=== PATIENT | male | born 1975 | race Caucasian/White ===

== ENCOUNTER 2024-11-01 10:27 | Inpatient (IN) | payer BC, OTHER ==
[~2024-11-01] VITALS: Ht 182.9 cm; Wt 131.7 kg
[2024-11-01] VITALS (7 sets, daily range): BP systolic 123; BP diastolic 67; PULSE 80–86; RESP 15–24; TEMP 98.2; O2SAT 94–98
--- NOTE | 2024-11-01 10:58 | ED.PDOC ---
Musculoskeletal HPI Comments 49 y/o obese M presents with c/o unhealing burn wound to left foot, today. Patient endorses on sustaining a burn wound to the outer-side of his left-foot, near his large toe a month ago and reports on wound not healing well since. He states further on additional onset of pain that radiates up his left leg to his knee area in addition to having worsening swelling and redness to around his left foot area along with chills and chills for the past 3x days. Patient comments on Tylenol/Motrin use to manage pain to no relief or improvement. He admits to traveling to [place] after sustaining wound and his tetanus shot being UTD. Patient denies any numbness, tingling, weakness, wound discharge, fever, or other associated symptoms or modifiers at this time. Chief Complaint: Lower Extremity Time Seen by MD: 10:40 Reviewed Notes: Nurses Notes, Medications, Allergies Allergies: Coded Allergies: NO KNOWN ALLERGIES (Unverified , 11/01/24) Information Source: Patient Mode of Arrival: Ambulatory Location: Left Extremity Location: Foot Timing: Months Prehospital treatment: Pain Meds Severity: Moderate Able to Move Extremity: Yes Bear Weight: Limited Pain: Moderate Past Medical History PAST MEDICAL HISTORY: Denies Past Medical History (Other): obese Surgical History (Other): back and foot surgery Family History Family History: Unknown Social History Smoker: Cigarettes Alcohol: Denies ETOH Use Drugs: Denies Drug Use Lives In: Home Integumetry: reports: wounds All Other Systems: Reviewed and Negative (Comprehensive systems review obtained and negative except for what is stated in the HPI.) Physical Exam General Appearance: No Apparent Distress, Normal HEENT: Normal ENT Inspection, Pharynx Normal, TMs Normal Neck: Full Range of Motion, Non-Tender, Normal, Normal Inspection Respiratory: Chest Non-Tender, Lungs Clear, No Accessory Muscle Use, No Respiratory Distress, Normal Breath Sounds Cardiovascular: No Edema, No JVD, No Murmur, No Gallop, Normal Peripheral Pulses, Regular Rate/Rhythm Breast Exam: Deferred Gastrointestinal: No Organomegaly, Non Tender, No Pulsatile Mass, Normal Bowel Sounds, Soft Genitalia: Deferred Pelvic: Deferred Rectal: Deferred Extremities: No calf tenderness, Normal capillary refill, Normal inspection, Normal range of motion, Other (Left lower extremity with mild to moderate swelling throughout extending from foot to the distal knee, positive warm to touch, old appearing wound to the left foot with surrounding erythema and tenderness to palpation, no active drainage, no crepitus, no skip lesions, no bullae, no necrotic skin, no pain beyond the area of erythema, still able to ambulate using that leg, full range of motion of all toes, ankle, knee, and hip, sensation intact to light touch throughout, 2+ DP pulses bilaterally, compartments soft) Musculoskeletal : Apperance: Normal Neurologic: Alert, force variation equipment tender II-XII nml as Tested, No Motor Deficits, Normal Affect, Normal Mood, No Sensory Deficits Cerebellar Function: NOT DONE Reflexes: NOT DONE Skin: Dry, Normal Color, Warm Lymphatic: No Adenopathy Was a procedure done? Was a procedure done?: No Differential Diagnosis EXT Differential Diagnosis: Cellulitis, Deep Vein Thrombosis, Septic, Other (unhealing wound, dermatitis) X-Ray, Labs, Meds, VS Vital Signs Date Time Temp Pulse Resp B/P (MAP) Pulse Ox O2 Delivery O2 Flow Rate FiO2 11/01/24 11:51 98 16 144/84 (104) 94 11/01/24 10:32 98.3 110 18 151/97 (115) 99 98.3 Lab Test 11/01/24 12:39 11/01/24 10:48 Range/Units Lactic Acid Level 1.8 3.1 *H 0.4-2.0 mmol/L White Blood Count 11.2 H 4.4-10.8 10^3/uL Red Blood Count 4.73 4.5-5.90 10^6/uL Hemoglobin 15.0 13.5-17.5 g/dL Hematocrit 41.6 41.0-53.0 % Mean Corpuscular Volume 88.1 80.0-100.0 fL Mean Corpuscular Hemoglobin 31.7 28.0-32.0 pg Mean Corpuscular Hemoglobin Concent 36.0 32.0-36.0 g/dL Red Cell Distribution Width 12.6 11.8-14.3 % Platelet Count 296 140-450 10^3/uL Mean Platelet Volume 7.9 6.9-10.8 fL Neutrophils (%) (Auto) 76.7 37.0-80.0 % Lymphocytes (%) (Auto) 12.8 10.0-50.0 % Monocytes (%) (Auto) 8.2 0.0-12.0 % Eosinophils (%) (Auto) 1.5 0.0-7.0 % Basophils (%) (Auto) 0.8 0.0-2.0 % Neutrophils # (Auto) 8.6 1.6-8.6 10 ^3/uL Lymphocytes # (Auto) 1.4 0.4-5.4 10 ^3/uL Monocytes # (Auto) 0.9 0-1.3 10 ^3/uL Eosinophils # (Auto) 0.2 0-0.8 10 ^3/uL Basophils # (Auto) 0.1 0-0.2 10 ^3/uL Nucleated Red Blood Cells 0.1 % Sodium Level 128 L 136-145 mmol/L Potassium Level 4.1 3.5-5.1 mmol/L Chloride Level 96 L 98-107 mmol/L Carbon Dioxide Level 21 20-31 mmol/L Anion Gap 11 5-15 Blood Urea Nitrogen 12 9-23 mg/dL Creatinine 0.94 0.700-1.30 mg/dL Glomerular Filtration Rate Calc 99 >90 mL/min BUN/Creatinine Ratio 12.8 10.0-20.0 Serum Glucose 385 H 74-106 mg/dL Calcium Level 10.0 8.7-10.4 mg/dL Current Medications Medications (Trade) Dose Ordered Sig/Charli Route Start Time Stop Time Status Last Admin Sodium Chloride 1,000 ml @ 1,000 mls/hr Q1H ONCE IV 11/01/24 10:45 11/01/24 11:44 DC 11/01/24 12:14 Ketorolac Tromethamine (Toradol Injection) 15 mg ONCE ONCE IV 11/01/24 10:45 11/01/24 10:46 DC 11/01/24 13:16 Ceftriaxone Sodium 50 ml @ 100 mls/hr ONCE ONCE IV 11/01/24 10:45 11/01/24 11:14 DC 11/01/24 13:[address] [address] Ph: [phone] DIAGNOSTIC IMAGING Diagnostic Imaging Report : [id number] Signed PATIENT: NIKITA ESQUIVEL ACCT: [id number] UNIT: [id number] : 1975 LOC: ER ROOM / BED: / AGE / SEX: 49 / M ADM STATUS: REG ER SERVICE 1044 ORDERING PHYSICIAN: SHARATH KEVIN MD PROCEDURE(s): LLDVT - LT Lower DVT REASON: R/O DVT ORDER NUMBER(s): [id number], ACCESSION NUMBER(s): [id number] EXAM: US LT LOWER DVT HISTORY: R/O DVT COMPARISON: None TECHNIQUE: Duplex Doppler evaluation of the deep venous system of the left lower extremity from the common femoral vein to the popliteal vein including color Doppler and spectral/pulsed waveform analysis was performed. FINDINGS: The common femoral vein demonstrates appropriate compressibility and waveform variability. There is compressibility/patency of the great saphenous vein at the proximal thigh. The femoral vein demonstrates appropriate compressibility and waveform variability. The deep femoral vein demonstrates appropriate compressibility and waveform variability. The popliteal vein demonstrates appropriate compressibility and waveform variability. There is normal compressibility at the tibioperoneal trunk. IMPRESSION: 1. No left femoropopliteal venous thrombosis. If clinical concern/symptoms persist or worsen, short-interval follow-up study is suggested. ATED BY: CESAR DUFF MD DICTATED DATE/TIME: 11/01/24 1126 SIGNED BY: CESAR DUFF MD SIGNED DATE/TIME: 11/01/24 112 CC: X-Ray, Labs, Meds, VS Comment 49-year-old male with no known past medical history here today with a concern for wound to his left lower extremity. Labs notable for elevated glucose to the 300s consistent with diabetes without evidence of DKA/HHS and also with elevated lactic acid. Physical exam and workup overall consistent with cellulitis/sepsis. Patient was started on antibiotics after cultures were drawn and was given 1 L of normal saline (30 cc/kilogram not performed due to concern for iatrogenic volume overload). Doubt necrotizing soft tissue infection or deep space abscess. Patient was admitted for further management and care of the cellulitis in the setting of uncontrolled diabetes. Patient in agreement with the plan. Time of 1ST Reevaluation: 11:10 Reevaluation 1ST: Improved Patient Education/Counseling: Diagnosis, Treatment Family Education/Counseling: No Family Present Additional Information Previous medical encounters reviewed: N/A The following tests were ordered, and results were reviewed by me: lactic acid w /reflex, BMP, CBC Additional Information was gathered from interviewing the following independent historians: N/A I reviewed and agreed with the following test results read by other providers: N/A I discussed treatment and results with medical personnel and: Patient Sepsis Sepsis Reasesment Focused Exam Sepsis focused exam: focus exam completed, time: (1054) Departure 1 Departure Time of Disposition: 13:51 Impression: Primary Impression: Cellulitis Additional Impressions: Uncontrolled diabetes mellitus Sepsis Disposition: 02 SHORT TERM HOSPITAL Admit to: Med Surg Condition: Stable Critical Care Note Critical Care Time?: Yes (30 min-critical care time only) Stability Stability form required: No Heart Score Heart Score: Heart Score Response (Comments) Value History N/A 0 EKG N/A 0 Age N/A 0 Risk Factors N/A 0 Troponin N/A 0 Total 0 GRACIA BURNHAM Nov 01, 2024 10:57 SHARATH KEVIN MD Nov 01, 2024 13:52
[2024-11-01 11:20] LABS: Basophils # (auto) 0.1 10 ^3/uL (0-0.2); Basophils % (auto) 0.8 % (0.0-2.0); Eosinophils # (auto) 0.2 10 ^3/uL (0-0.8); Eosinophils % (auto) 1.5 % (0.0-7.0); Hematocrit 41.6 % (41.0-53.0); Lymphocytes # (auto) 1.4 10 ^3/uL (0.4-5.4); Lymphocytes % (auto) 12.8 % (10.0-50.0); Mean Corpuscular Hemoglobin 31.7 pg (28.0-32.0); Mean Corpuscular Volume 88.1 fL (80.0-100.0); Monocytes # (auto) 0.9 10 ^3/uL (0-1.3); Monocytes % (auto) 8.2 % (0.0-12.0); Neutrophils # (auto) 8.6 10 ^3/uL (1.6-8.6); Neutrophils % (auto) 76.7 % (37.0-80.0); Nucleated Red Blood Cells % 0.1 %; Platelet Count (auto) 296 10^3/uL (140-450); Red Blood Cells 4.73 10^6/uL (4.5-5.90); Red Cell Distribution Width 12.6 % (11.8-14.3); White Blood Cell 11.2 10^3/uL (4.4-10.8)
[2024-11-01 11:26] LABS: Potassium 4.1 mmol/L (3.5-5.1)
[2024-11-01 11:27] LABS: Anion Gap 11 (5-15); Carbon Dioxide 21 mmol/L (20-31)
--- NOTE | 2024-11-01 11:28 | DVH ---
EXAM: US LT LOWER DVT HISTORY: R/O DVT COMPARISON: None TECHNIQUE: Duplex Doppler evaluation of the deep venous system of the left lower extremity from the c ommon femoral vein to the popliteal vein including color Doppler and spectral/pulsed waveform analysi s was performed. FINDINGS: The common femoral vein demonstrates appropriate compressibility and waveform variability. There is compressibility/patency of the great saphenous vein at the proximal thigh. The femoral vein demonstrates appropriate compressibility and waveform variability. The deep femoral vein demonstrates appropriate compressibility and waveform variability. The popliteal vein demonstrates appropriate compressibility and waveform variability. There is normal compressibility at the tibioperoneal trunk. IMPRESSION: 1. No left femoropopliteal venous thrombosis. If clinical concern/symptoms persist or worsen, short-interval follow-up study is suggested.
[2024-11-01 11:32] LABS: BUN/Creatinine Ratio 12.8 (10.0-20.0); Blood Urea Nitrogen 12 mg/dL (9-23)
[2024-11-01 11:38] LABS: Chloride 96 mmol/L (98-107); Glucose 385 mg/dL (74-106); Lactic Acid w/Reflex 3.1 mmol/L (0.4-2.0); Sodium 128 mmol/L (136-145)
[2024-11-01] MEDS: SODIUM CHLORIDE 0.9% 1,000 ML IV ONE ×2 (12:14→18:33)
[2024-11-01] MEDS: cefTRIAXone 1GM/50ML D5W 50 ML IV ONE (13:16)
[2024-11-01] MEDS: KETOROLAC TROMETH 30 MG/ML 1ML VIAL IV ONE (13:16)
--- NOTE | 2024-11-01 14:43 | DVHHP2 ---
Admitting Diagnosis: Left foot pain History of Present Illness 49 y/o obese M presents with c/o unhealing burn wound to left foot, today. Patient endorses on sustaining a burn wound to the outer-side of his left-foot, near his large toe a month ago and reports on wound not healing well since. He states further on additional onset of pain that radiates up his left leg to his knee area in addition to having worsening swelling and redness to around his left foot area along with chills and chills for the past 3x days. Patient comments on Tylenol/Motrin use to manage pain to no relief or improvement. He admits to traveling to [place] after sustaining wound and his tetanus shot being UTD. Patient denies any numbness, tingling, weakness, wound discharge, fever, or other associated symptoms or modifiers at this time. PAST MEDICAL HISTORY: Denies Past Medical History (Other): obese Surgical History (Other): back and foot surgery Family History: Unknown Social History Smoker: Cigarettes Alcohol: Denies ETOH Use Drugs: Denies Drug Use Lives In: Home Allergies: Coded Allergies: NO KNOWN ALLERGIES (Unverified , 11/01/24) Current Medications Current Medications Medications (Trade) Dose Ordered Sig/Charli Route PRN Reason Start Time Stop Time Status Last Admin Vancomycin HCl 0 ml @ 0 mls/hr UD IV 11/01/24 16:00 UNV Piperacillin Sod/ Tazobactam Sod 100 ml @ 100 mls/hr Q6H IV 11/01/24 16:00 UNV Diagnostic Test (Pha) (Accu-Chek Comfort Curve T) 1 strip ACHS 11/01/24 17:00 UNV Insulin Human Regular (InsuLIN R) ACHS SC 11/01/24 17:00 UNV Dextrose 50 ml UD PRN IV Blood Sugar LESS THAN 60 11/01/24 16:00 UNV Docusate Sodium (Colace Capsule) 100 mg BIDPRN PRN PO FOR CONSTIPATION 11/01/24 16:00 UNV Acetaminophen (Tylenol Tablet) 650 mg Q6HP PRN PO PAIN SCALE 1-3 OR TEMP>100.4 11/01/24 16:00 UNV Hydromorphone HCl (Dilaudid Injection) 0.5 mg Q4HP PRN IV SEVERE PAIN (7-10 PAIN SCALE) 11/01/24 16:00 UNV Ondansetron HCl (Zofran) 4 mg Q4HP PRN IV NAUSEA / VOMITING 11/01/24 16:00 UNV Vital Signs Vital Signs Date Time Temp Pulse Resp B/P (MAP) Pulse Ox O2 Delivery O2 Flow Rate FiO2 11/01/24 13:47 84 16 134/75 (94) 95 11/01/24 10:32 98.3 98.3 Physical Exam -49 years old male, overweight, sitting on chair. Mild distress HEENT-atraumatic normocephalic Heart-regular rate and rhythm Lungs clear to auscultate bilaterally Abdomen soft nontender nondistended Musculoskeletal-left lower extremity laterally erythema, tender with the wheezing as left lateral ulcer Neuro-AO x3, they seem bilateral lower foot, strength intact Results Labs Test 11/01/24 12:39 11/01/24 10:48 Range/Units Lactic Acid Level 1.8 0.4-2.0 mmol/L White Blood Count 11.2 H 4.4-10.8 10^3/uL Red Blood Count 4.73 4.5-5.90 10^6/uL Hemoglobin 15.0 13.5-17.5 g/dL Hematocrit 41.6 41.0-53.0 % Mean Corpuscular Volume 88.1 80.0-100.0 fL Mean Corpuscular Hemoglobin 31.7 28.0-32.0 pg Mean Corpuscular Hemoglobin Concent 36.0 32.0-36.0 g/dL Red Cell Distribution Width 12.6 11.8-14.3 % Platelet Count 296 140-450 10^3/uL Mean Platelet Volume 7.9 6.9-10.8 fL Neutrophils (%) (Auto) 76.7 37.0-80.0 % Lymphocytes (%) (Auto) 12.8 10.0-50.0 % Monocytes (%) (Auto) 8.2 0.0-12.0 % Eosinophils (%) (Auto) 1.5 0.0-7.0 % Basophils (%) (Auto) 0.8 0.0-2.0 % Neutrophils # (Auto) 8.6 1.6-8.6 10 ^3/uL Lymphocytes # (Auto) 1.4 0.4-5.4 10 ^3/uL Monocytes # (Auto) 0.9 0-1.3 10 ^3/uL Eosinophils # (Auto) 0.2 0-0.8 10 ^3/uL Basophils # (Auto) 0.1 0-0.2 10 ^3/uL Nucleated Red Blood Cells 0.1 % Sodium Level 128 L 136-145 mmol/L Potassium Level 4.1 3.5-5.1 mmol/L Chloride Level 96 L 98-107 mmol/L Carbon Dioxide Level 21 20-31 mmol/L Anion Gap 11 5-15 Blood Urea Nitrogen 12 9-23 mg/dL Creatinine 0.94 0.700-1.30 mg/dL Glomerular Filtration Rate Calc 99 >90 mL/min BUN/Creatinine Ratio 12.8 10.0-20.0 Serum Glucose 385 H 74-106 mg/dL Calcium Level 10.0 8.7-10.4 mg/dL Primary Diagnosis Left foot nonhealing ulcer possible cellulitis Sepsis Lactic acidosis Plan Zosyn for broad-spectrum antibiotics Check blood culture CT of the left foot to assess for possible abscess Check A1c level Pain control Podiatry Consult consult for left foot Check CRP Pain control Antiemetics Full code Lovenox for DVT prophylaxis No GI prophylaxis needed Diabetic diet Plan discussed with: Patient Problems List: (1) Cellulitis Status: Acute (2) Uncontrolled diabetes mellitus Status: Acute (3) Sepsis Status: Acute Date of Service: Nov 01, 2024 Billing Provider: KIRK BAE MD Common Visit Codes: [id number] INP/OBS CARE (HIGH) KIRK BAE MD Nov 01, 2024 14:43
[2024-11-01] MEDS ORDERED: ONDANSETRON HCL 4 MG/2 ML VIAL IV PRN (16:00)
[2024-11-01] MEDS ORDERED: DEXTROSE (50%) 50ML SYRG IV PRN (16:00)
[2024-11-01] MEDS ORDERED: VANCOMYCIN PER PHARMACY 0 MG IV SCH (16:00)
[2024-11-01] MEDS ORDERED: PIPERACILLIN-TAZOB 3.375GM 100 ML IV ONE (16:30)
[2024-11-01 16:47] LABS: Erythrocyte Sedimentation Rate 72 mm/hr (0-20)
--- NOTE | 2024-11-01 16:55 | DVH ---
EXAM: CT LEFT LOWER EXTREMITY W/O CON INDICATION: left foot cellulitis EXAM DATE: 11/01/2024 04:11 PM COMPARISON: None TECHNIQUE: Multiple axial CT images of the left foot and ankle were obtained using bone algorithm. Ax ial and coronal reformatting was done. Bone and soft tissue windows were reviewed. Radiation Dose Information: CT Dose: CTDI volume is 7.75 mGy. Dose-length product is 240.36 mGy*cm Findings/Impression: Limited evaluation given noncontrast technique. There is no evidence of an acute fracture, dislocation, osseous erosions, blastic, or lytic lesions. No radiopaque foreign bodies. Mild diffuse soft tissue edema. No focal fluid collections or subcutaneous emphysema.
[2024-11-01] MEDS: ACCU-CHEK COMFORT CURVE STRIP VI SCH (17:00)
[2024-11-01] MEDS: HYDROmorphone HCL 2 MG/ML VL/or syr IV PRN (17:38)
[2024-11-01] MEDS: PIPERACILLIN-TAZOB 3.375GM 100 ML IV ONE (17:55)
[2024-11-01] MEDS: InsuLIN REG 1unit/0.01ml Soln (100units/ml) SC SCH (17:56)
[2024-11-01] MEDS: VANCOMYCIN 1GM/200ML PM 250 ML IV SCH (18:34)
[2024-11-02] VITALS (10 sets, daily range): BP systolic 112–153; BP diastolic 56–92; PULSE 84–91; RESP 18–20; TEMP 97.6–99; O2SAT 91–98
[2024-11-02] MEDS: PIPERACILLIN-TAZOB 3.375GM 100 ML IV SCH ×2 (02:28→14:00)
[2024-11-02] MEDS: VANCOMYCIN 1.75GM/350ML IV SCH (06:08)
[2024-11-02 06:22] LABS: Alanine Aminotransferase 28 U/L (7-40); Alkaline Phosphatase 82 U/L (46-116); Anion Gap 9 (5-15); Aspartate Aminotransferase 17 U/L (13-40); BUN/Creatinine Ratio 15.7 (10.0-20.0); Basophils # (auto) 0.1 10 ^3/uL (0-0.2); Blood Urea Nitrogen 14 mg/dL (9-23); Calcium 9.5 mg/dL (8.7-10.4); Carbon Dioxide 23 mmol/L (20-31); Chloride 101 mmol/L (98-107); Eosinophils # (auto) 0.3 10 ^3/uL (0-0.8); Eosinophils % (auto) 3.3 % (0.0-7.0); Hematocrit 38.6 % (41.0-53.0); Hemoglobin 13.7 g/dL (13.5-17.5); Lymphocytes # (auto) 1.6 10 ^3/uL (0.4-5.4); Lymphocytes % (auto) 17.1 % (10.0-50.0); Mean Corpuscular Hemoglobin 31.3 pg (28.0-32.0); Mean Corpuscular Hgb Conc. 35.4 g/dL (32.0-36.0); Mean Corpuscular Volume 88.3 fL (80.0-100.0); Monocytes # (auto) 0.8 10 ^3/uL (0-1.3); Neutrophils # (auto) 6.4 10 ^3/uL (1.6-8.6); Neutrophils % (auto) 69.6 % (37.0-80.0); Platelet Count (auto) 250 10^3/uL (140-450); Potassium 4.2 mmol/L (3.5-5.1); Red Blood Cells 4.37 10^6/uL (4.5-5.90); Red Cell Distribution Width 12.5 % (11.8-14.3); Total Protein 6.9 g/dL (5.7-8.2); White Blood Cell 9.2 10^3/uL (4.4-10.8)
[2024-11-02 06:48] LABS: Glucose 235 mg/dL (74-106); Sodium 133 mmol/L (136-145)
[2024-11-02] MEDS ORDERED: PIPERACILLIN-TAZOB 3.375GM 100 ML IV SCH (09:45)
--- NOTE | 2024-11-02 11:27 | DVHPN2 ---
Reviewed: Care Plan, H&P, Labs, Medications, Previous Orders, Radiology Changes from previous H/P or p: No Changes Objective Vitals Vital Signs Date Time Temp Pulse Resp B/P (MAP) Pulse Ox O2 Delivery O2 Flow Rate FiO2 11/02/24 09:00 98.2 87 18 128/72 (90) 95 98.2 11/01/24 22:59 Room Air 11/01/24 22:59 0 21 Intake/Output Intake and Output 11/02/24 07:00 Intake Total 2675 ml Balance 2675 ml Intake Oral 800 ml IV Total 1875 ml # Voids 2 Medications Current Medications Medications Dose Ordered Sig/Charli Route Start Time Stop Time Status Last Admin Dose Admin Vancomycin HCl 0 ml @ 0 mls/hr UD IV 11/01/24 16:00 Diagnostic Test (Pha) 1 strip ACHS 11/01/24 17:00 11/02/24 06:09 1 STRIP Insulin Human Regular ACHS SC 11/01/24 17:00 11/02/24 06:36 4 UNITS Dextrose 50 ml UD PRN IV 11/01/24 16:00 Docusate Sodium 100 mg BIDPRN PRN PO 11/01/24 16:00 Acetaminophen 650 mg Q6HP PRN PO 11/01/24 16:00 Hydromorphone HCl 0.5 mg Q4HP PRN IV 11/01/24 16:00 11/02/24 06:32 0.5 MG Ondansetron HCl 4 mg Q4HP PRN IV 11/01/24 16:00 Vancomycin HCl 350 ml @ 200 mls/hr Q12HR@0600,1800 IV 11/02/24 06:00 11/02/24 06:08 200 MLS/HR Piperacillin Sod/ Tazobactam Sod 100 ml @ 25 mls/hr Q6H IV 11/02/24 14:00 Laboratory Results Laboratory Tests 11/02/24 05:24 Chemistry Test 11/02/24 05:24 Albumin 4.0 g/dL (3.2-4.8) Calcium Level 9.5 mg/dL (8.7-10.4) Total Protein 6.9 g/dL (5.7-8.2) LFT Test 11/02/24 05:24 Alanine Aminotransferase (ALT) 28 U/L (7-40) Alkaline Phosphatase 82 U/L (46-116) Aspartate Amino Transferase (AST) 17 U/L (13-40) Total Bilirubin 1.0 mg/dL (0.2-1.0) Labs and/or images reviewed: Labs reviewed by me, Image(s) reviewed by me Assessment/Plan Assessment/Plan Sepsis secondary to cellulitis of the foot Cellulitis left foot with nonhealing left 5th toe wound: Blood cultures, vancomycin and Zosyn, consult for system support developer Dr. Boland, wound consult wound cultures CT left foot negative for any fracture or dislocation Uncontrolled diabetes new onset blood glucose 385 A1c 8.8: Insulin sliding scale, diabetic teaching Lactic acidosis DVT left lower extremity ruled out Plan discussed with: Patient My Orders Orders - LEIGH ZAPATA MD Procedure Category Date Status Time * Wound Consult CONS 11/02/24 Transmitted Date of Service: Nov 02, 2024 Billing Provider: LEIGH ZAPATA MD Common Visit Codes: [id number] INP/OBS CARE(HIGH) LEIGH ZAPATA MD Nov 02, 2024 11:27
[2024-11-02] MEDS: ACETAMINOPHEN 325 MG TAB PO PRN (14:30)
--- NOTE | 2024-11-02 16:50 | DVH ---
EXAMINATION: MRI MRI L FOOT WO CONTRAST TECHNIQUE: MRI of the rightleft knee was performed. The following sequences were obtained without co ntrast: Sagittal PD Sagittal T2 FS Coronal T1 Coronal PD FS Axial PD FS Oblique ACL view HISTORY: R/O OSTEO COMPARISON: None FINDINGS/IMPRESSION: Diffuse subcutaneous soft-tissue edema and swelling most prominent at the lateral aspect of the foot. Findings likely represent cellulitis. Possible soft-tissue laceration at the lateral aspect of the f oot. Bone marrow edema is present involving the 5th metatarsal and 5th proximal phalanx. Findings are jw picious for acute osteomyelitis.
[2024-11-03] VITALS (12 sets, daily range): BP systolic 132–145; BP diastolic 71–91; PULSE 72–89; RESP 17–19; TEMP 97.3–98.1; O2SAT 93–99
[2024-11-03 06:06] LABS: Alanine Aminotransferase 30 U/L (7-40); Alkaline Phosphatase 89 U/L (46-116); Anion Gap 8 (5-15); Aspartate Aminotransferase 19 U/L (13-40); BUN/Creatinine Ratio 15.7 (10.0-20.0); Basophils # (auto) 0.1 10 ^3/uL (0-0.2); Bilirubin, Total 0.9 mg/dL (0.2-1.0); Blood Urea Nitrogen 14 mg/dL (9-23); Calcium 9.7 mg/dL (8.7-10.4); Carbon Dioxide 27 mmol/L (20-31); Chloride 99 mmol/L (98-107); Eosinophils # (auto) 0.4 10 ^3/uL (0-0.8); Eosinophils % (auto) 5.4 % (0.0-7.0); Hematocrit 41.1 % (41.0-53.0); Hemoglobin 14.2 g/dL (13.5-17.5); Lymphocytes # (auto) 1.6 10 ^3/uL (0.4-5.4); Mean Corpuscular Hemoglobin 30.5 pg (28.0-32.0); Mean Corpuscular Hgb Conc. 34.6 g/dL (32.0-36.0); Mean Corpuscular Volume 88.1 fL (80.0-100.0); Monocytes # (auto) 0.8 10 ^3/uL (0-1.3); Monocytes % (auto) 10.1 % (0.0-12.0); Neutrophils # (auto) 4.7 10 ^3/uL (1.6-8.6); Neutrophils % (auto) 62.5 % (37.0-80.0); Nucleated Red Blood Cells % 0.1 %; Platelet Count (auto) 264 10^3/uL (140-450); Potassium 4.4 mmol/L (3.5-5.1); Red Blood Cells 4.66 10^6/uL (4.5-5.90); Red Cell Distribution Width 12.5 % (11.8-14.3); Total Protein 6.7 g/dL (5.7-8.2); White Blood Cell 7.6 10^3/uL (4.4-10.8)
[2024-11-03 07:03] LABS: Glucose 212 mg/dL (74-106); Sodium 134 mmol/L (136-145)
--- NOTE | 2024-11-03 08:17 | DVHPN2 ---
Reviewed: Care Plan, H&P, Labs, Medications, Previous Orders, Radiology Changes from previous H/P or p: No Changes Objective Vitals Vital Signs Date Time Temp Pulse Resp B/P (MAP) Pulse Ox O2 Delivery O2 Flow Rate FiO2 11/03/24 06:55 93 Room Air 0.0 11/03/24 06:55 40 21 11/03/24 06:28 73 16 136/74 11/03/24 05:00 98.1 98.1 Intake/Output Intake and Output 11/03/24 07:00 Intake Total 1400 ml Output Total 1800 ml Balance -400 ml Intake Oral 1050 ml IV Total 350 ml Output Urine Total 1800 ml Medications Current Medications Medications Dose Ordered Sig/Charli Route Start Time Stop Time Status Last Admin Dose Admin Vancomycin HCl 0 ml @ 0 mls/hr UD IV 11/01/24 16:00 Diagnostic Test (Pha) 1 strip ACHS 11/01/24 17:00 11/03/24 07:28 1 STRIP Insulin Human Regular ACHS SC 11/01/24 17:00 11/03/24 07:38 4 UNITS Dextrose 50 ml UD PRN IV 11/01/24 16:00 Docusate Sodium 100 mg BIDPRN PRN PO 11/01/24 16:00 Acetaminophen 650 mg Q6HP PRN PO 11/01/24 16:00 11/02/24 21:53 650 MG Hydromorphone HCl 0.5 mg Q4HP PRN IV 11/01/24 16:00 11/03/24 05:58 0.5 MG Ondansetron HCl 4 mg Q4HP PRN IV 11/01/24 16:00 Vancomycin HCl 350 ml @ 200 mls/hr Q12HR@0600,1800 IV 11/02/24 06:00 11/03/24 06:27 200 MLS/HR Piperacillin Sod/ Tazobactam Sod 100 ml @ 25 mls/hr Q6H IV 11/02/24 14:00 11/03/24 04:42 25 MLS/HR Laboratory Results Laboratory Tests 11/03/24 05:19 Chemistry Test 11/03/24 05:19 Albumin 4.0 g/dL (3.2-4.8) Calcium Level 9.7 mg/dL (8.7-10.4) Total Protein 6.7 g/dL (5.7-8.2) LFT Test 11/03/24 05:19 Alanine Aminotransferase (ALT) 30 U/L (7-40) Alkaline Phosphatase 89 U/L (46-116) Aspartate Amino Transferase (AST) 19 U/L (13-40) Total Bilirubin 0.9 mg/dL (0.2-1.0) Microbiology Microbiology Date/Time Source Procedure Growth Status 11/01/24 12:39 Blood Blood Culture - Preliminary NO GROWTH AFTER 24 HOURS OF INCUBATION. Resulted Labs and/or images reviewed: Labs reviewed by me, Image(s) reviewed by me Assessment/Plan Assessment/Plan Sepsis secondary to cellulitis of the foot Cellulitis left foot with nonhealing left 5th toe wound: Blood cultures negative, wound cultures pending vancomycin and Zosyn, consult for clay modeler Dr. Boland, wound consult CT left foot negative for any fracture or dislocation Uncontrolled diabetes new onset blood glucose 385 A1c 8.8: Insulin sliding scale, diabetic teaching Lactic acidosis DVT left lower extremity ruled out Plan discussed with: Patient My Orders Orders - LEIGH ZAPATA MD Procedure Category Date Status Time * Wound Consult CONS 11/02/24 Transmitted Podiatry Consult CONS 11/02/24 Transmitted 11:28 *Rn Convenience [employer] Tech REFER 11/02/24 Transmitted Referral 11:28 Consistent DIET 11/02/24 Transmitted Carb(Ccho)Diabetes Lunch Dietary NOTICE 11/02/24 Transmitted Recommendations 13:59 * Tortilla Maker CONS 11/02/24 Transmitted Consult Cleanse Wound With MIKE 11/02/24 In Process Wound Clean 13:40 Wound Culture W/ Gs EB 11/03/24 Logged 07:38 Date of Service: Nov 03, 2024 Billing Provider: LEIGH ZAPATA MD Common Visit Codes: [id number] INP/OBS CARE(HIGH) LEIGH ZAPATA MD Nov 03, 2024 08:17
[2024-11-03] MEDS: VANCOMYCIN 1.75GM/350ML 350 ML IV SCH (16:12)
[2024-11-04] VITALS (14 sets, daily range): BP systolic 114–150; BP diastolic 69–88; PULSE 68–107; RESP 14–20; TEMP 97.6–98.6; O2SAT 92–99
[2024-11-04 06:02] LABS: Basophils # (auto) 0.1 10 ^3/uL (0-0.2); Basophils % (auto) 1.3 % (0.0-2.0); Eosinophils # (auto) 0.5 10 ^3/uL (0-0.8); Eosinophils % (auto) 6.3 % (0.0-7.0); Hematocrit 39.1 % (41.0-53.0); Hemoglobin 13.9 g/dL (13.5-17.5); Lymphocytes # (auto) 1.4 10 ^3/uL (0.4-5.4); Lymphocytes % (auto) 18.1 % (10.0-50.0); Mean Corpuscular Hemoglobin 31.2 pg (28.0-32.0); Mean Corpuscular Hgb Conc. 35.7 g/dL (32.0-36.0); Mean Corpuscular Volume 87.5 fL (80.0-100.0); Monocytes # (auto) 0.7 10 ^3/uL (0-1.3); Monocytes % (auto) 8.3 % (0.0-12.0); Neutrophils # (auto) 5.3 10 ^3/uL (1.6-8.6); Platelet Count (auto) 277 10^3/uL (140-450); Red Blood Cells 4.47 10^6/uL (4.5-5.90); Red Cell Distribution Width 12.5 % (11.8-14.3)
[2024-11-04 06:03] LABS: INR 1.17 (0.9-1.15); Partial Thromboplastin Time 30.5 SEC (24.5-34.5); Prothrombin Time 12.2 sec (9.3-11.8)
[2024-11-04 06:14] LABS: Alanine Aminotransferase 33 U/L (7-40); Alkaline Phosphatase 84 U/L (46-116); Anion Gap 10 (5-15); BUN/Creatinine Ratio 14.5 (10.0-20.0); Blood Urea Nitrogen 12 mg/dL (9-23); Calcium 9.6 mg/dL (8.7-10.4); Carbon Dioxide 25 mmol/L (20-31); Chloride 100 mmol/L (98-107); Total Protein 7.3 g/dL (5.7-8.2)
[2024-11-04 06:15] LABS: Albumin 4.1 g/dL (3.2-4.8); Aspartate Aminotransferase 25 U/L (13-40); Bilirubin, Total 0.8 mg/dL (0.2-1.0)
[2024-11-04 06:21] LABS: Glucose 160 mg/dL (74-106); Sodium 135 mmol/L (136-145)
--- NOTE | 2024-11-04 06:44 | DVH ---
EXAM: XR Chest, 1 View CLINICAL INDICATION: pre-op protocol TECHNIQUE: Frontal view of the chest. COMPARISON: None FINDINGS: LUNGS AND PLEURAL SPACES: Pulmonary venous congestion. No consolidation. No pneumothorax. HEART: Unremarkable. No cardiomegaly. MEDIASTINUM: Unremarkable. Normal mediastinal contour. BONES/JOINTS: Unremarkable. No acute fracture. OTHER FINDINGS: . . . IMPRESSION: Pulmonary venous congestion.
--- NOTE | 2024-11-04 08:47 | DVHPN2 ---
Reviewed: Care Plan, H&P, Labs, Medications, Previous Orders, Radiology Changes from previous H/P or p: No Changes Objective Vitals Vital Signs Date Time Temp Pulse Resp B/P (MAP) Pulse Ox O2 Delivery O2 Flow Rate FiO2 11/04/24 08:05 Room Air* 0 21 11/04/24 07:58 75 19 150/83 11/04/24 04:46 97.8 96 97.8 Intake/Output Intake and Output 11/04/24 07:00 Intake Total 1750 ml Output Total 1950 ml Balance -200 ml Intake Oral 1100 ml IV Total 650 ml Output Urine Total 1950 ml Medications Current Medications Medications Dose Ordered Sig/Charli Route Start Time Stop Time Status Last Admin Dose Admin Vancomycin HCl 0 ml @ 0 mls/hr UD IV 11/01/24 16:00 Diagnostic Test (Pha) 1 strip ACHS 11/01/24 17:00 11/04/24 05:55 1 STRIP Insulin Human Regular ACHS SC 11/01/24 17:00 11/04/24 05:56 3 UNITS Dextrose 50 ml UD PRN IV 11/01/24 16:00 Docusate Sodium 100 mg BIDPRN PRN PO 11/01/24 16:00 Acetaminophen 650 mg Q6HP PRN PO 11/01/24 16:00 11/03/24 13:10 650 MG Hydromorphone HCl 0.5 mg Q4HP PRN IV 11/01/24 16:00 11/04/24 07:58 0.5 MG Ondansetron HCl 4 mg Q4HP PRN IV 11/01/24 16:00 Piperacillin Sod/ Tazobactam Sod 100 ml @ 25 mls/hr Q6H IV 11/02/24 14:00 11/04/24 07:58 25 MLS/HR Vancomycin HCl 350 ml @ 233.333 mls/hr Q10H IV 11/03/24 16:00 11/04/24 02:19 233.333 MLS/HR Laboratory Results Laboratory Tests 11/04/24 05:25 Chemistry Test 11/04/24 05:25 Albumin 4.1 g/dL (3.2-4.8) Calcium Level 9.6 mg/dL (8.7-10.4) Total Protein 7.3 g/dL (5.7-8.2) Coagulation Test 11/04/24 05:25 Prothrombin Time 12.2 sec (9.3-11.8) H Prothrombin Time INR 1.17 (0.9-1.15) H Activated Partial Thromboplast Time 30.5 SEC (24.5-34.5) LFT Test 11/04/24 05:25 Alanine Aminotransferase (ALT) 33 U/L (7-40) Alkaline Phosphatase 84 U/L (46-116) Aspartate Amino Transferase (AST) 25 U/L (13-40) Total Bilirubin 0.8 mg/dL (0.2-1.0) Microbiology Microbiology Date/Time Source Procedure Growth Status 11/01/24 12:39 Blood Blood Culture - Preliminary NO GROWTH AFTER 48 HOURS OF INCUBATION. Resulted Labs and/or images reviewed: Labs reviewed by me, Image(s) reviewed by me Assessment/Plan Assessment/Plan Sepsis secondary to cellulitis of the foot Cellulitis left foot with nonhealing left 5th toe wound: Blood cultures negative, wound cultures pending vancomycin and Zosyn, consult for government guard Dr. Boland, wound consult, patient getting I&D of the abscess today by Dr Boland CT left foot negative for any fracture or dislocation Uncontrolled diabetes new onset blood glucose 385 A1c 8.8: Insulin sliding scale, diabetic teaching Lactic acidosis DVT left lower extremity ruled out Plan discussed with: Patient My Orders Orders - LEIGH ZAPATA MD Procedure Category Date Status Time Chest Xray 1 View XY 11/04/24 Resulted 08:00 Date of Service: Nov 04, 2024 Billing Provider: LEIGH ZAPATA MD Common Visit Codes: [id number] INP/OBS CARE(HIGH) LEIGH ZAPATA MD Nov 04, 2024 08:47
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
--- NOTE | 2024-11-04 13:14 | DVHOP2 ---
Operative Report - 2 Report Details Date: 11/04/24 Preop Diagnosis: 1. Left foot osteomyelitis 2. Left foot abscess 3. Left foot cellulitis 4. Left foot diabetic ulcer Postop Diagnosis: Same as preop Surgeon: Aline Salcido MD Anesthesiologist: See anesthesia Anesthesia: Mac Consent: The patient was informed of the risks and benefits of the procedure. These include but are not limited to complications of anesthesia, postoperative infection, incomplete relief of symptoms, recurrence of symptoms, damage to blood vessels, nerves and tendons, deep venous thrombosis, pulmonary embolism and possible need for repeat surgery in the future. Complications: None Estimated Blood Loss: Minimal Fluids: See anesthesia Findings: Consistent with diagnosis Indications for Surgery: Worsening left foot wound Name of Procedure Performed 1. Left foot I&D to bone () 2. Left foot bone biopsy () Procedure Details Procedure Details: PRE-PROCEDURE INFORMATION: In the pre-op holding area, the extremity to be operated on was clearly marked and the patient verified correct laterality of the marking. The patient was transferred to the OR table and placed in a supine position. A timeout was performed in which identification of the correct patient, procedure, location, and materials was done. The left foot and leg were prepped and draped in normal sterile fashion. DESCRIPTION OF PROCEDURE: Attention was directed to the left where area of fluctuance was noted. An incision was made over this area and was deepened through blunt dissection. The incision was deepened to the level of abscess and bone. Care was taken to the dissection to avoid any neurovascular and tendinous structures. The incision was deepened to the bone, and the abscess appeared to be purulent fluid consistent with pus. The cortices of the bone was then removed with rongeur an all necrotic tissue. After the abscess was drained, the area was irrigated with 3 L normal saline using cysto tubing. Deep cultures were then obtained from the wound. The area was then inspected and any areas of tracking, especially along the tendons were also drained. A bone biopsy was then taken of the left proximal phalanx and left 5th metatarsal which was deepened to the muscle belly and tendons. The bone was then sent to pathology to determine the extent of osteomyelitis. The wound was packed with Betadine- soaked gauze and we will need to be closed at a later date. Surgery POSTOPERATIVE INFORMATION: The patient tolerated the above noted procedure and anesthesia well and was transferred to the PACU with vital signs stable, and vascular status intact with capillary refill intact to all digits. Patient will return to the floor continue IV antibiotics. Deep cultures were taken. Bone biopsy was sent. Patient can weightbear as tolerated in a postoperative shoe. Specimen: Left 5th proximal phalanx and 5th metatarsal Condition Good Disposition Still a Patient ALINE SALCIDO DPM Nov 04, 2024 13:14
[2024-11-04] MEDS ORDERED: fentaNYL CITRATE 100 MCG/2 ML VL ONE (13:22)
[2024-11-04] MEDS ORDERED: ONDANSETRON HCL 4 MG/2 ML VIAL ONE (13:44)
[2024-11-04] MEDS ORDERED: CLINIMIX PER PHARMACY 0 ML IV SCH (14:00)
[2024-11-05] VITALS (11 sets, daily range): BP systolic 111–138; BP diastolic 66–83; PULSE 62–85; RESP 18–20; TEMP 97.6–98; O2SAT 94–99
[2024-11-05 06:59] LABS: Alanine Aminotransferase 32 U/L (7-40); Alkaline Phosphatase 93 U/L (46-116); Anion Gap 10 (5-15); Blood Urea Nitrogen 11 mg/dL (9-23); Calcium 9.7 mg/dL (8.7-10.4); Carbon Dioxide 25 mmol/L (20-31); Chloride 100 mmol/L (98-107); Potassium 3.9 mmol/L (3.5-5.1); Total Protein 7.1 g/dL (5.7-8.2)
[2024-11-05 07:00] LABS: Albumin 4.1 g/dL (3.2-4.8); Aspartate Aminotransferase 27 U/L (13-40); Bilirubin, Total 0.8 mg/dL (0.2-1.0)
[2024-11-05 07:01] LABS: Glucose 148 mg/dL (74-106); Sodium 135 mmol/L (136-145)
[2024-11-05 07:05] LABS: Basophils # (auto) 0.1 10 ^3/uL (0-0.2); Basophils % (auto) 1.8 % (0.0-2.0); Eosinophils # (auto) 0.5 10 ^3/uL (0-0.8); Eosinophils % (auto) 6.6 % (0.0-7.0); Hematocrit 39.8 % (41.0-53.0); Hemoglobin 13.9 g/dL (13.5-17.5); Lymphocytes % (auto) 25.4 % (10.0-50.0); Mean Corpuscular Hemoglobin 31.2 pg (28.0-32.0); Mean Corpuscular Hgb Conc. 34.9 g/dL (32.0-36.0); Mean Corpuscular Volume 89.2 fL (80.0-100.0); Monocytes # (auto) 0.8 10 ^3/uL (0-1.3); Monocytes % (auto) 10.1 % (0.0-12.0); Neutrophils # (auto) 4.3 10 ^3/uL (1.6-8.6); Neutrophils % (auto) 56.1 % (37.0-80.0); Platelet Count (auto) 280 10^3/uL (140-450); Red Blood Cells 4.47 10^6/uL (4.5-5.90); Red Cell Distribution Width 12.6 % (11.8-14.3); White Blood Cell 7.7 10^3/uL (4.4-10.8)
--- NOTE | 2024-11-05 08:51 | DVHPN2 ---
Reviewed: Care Plan, H&P, Labs, Medications, Previous Orders, Radiology Changes from previous H/P or p: No Changes Objective Vitals Vital Signs Date Time Temp Pulse Resp B/P (MAP) Pulse Ox O2 Delivery O2 Flow Rate FiO2 11/05/24 07:24 99 Room Air 0.0 11/05/24 07:24 40 21 11/05/24 05:00 97.6 71 18 111/66 (81) 97.6 Intake/Output Intake and Output 11/05/24 07:00 Intake Total 1625 ml Output Total 1850 ml Balance -225 ml Intake Oral 800 ml IV Total 825 ml Output Urine Total 1850 ml Medications Current Medications Medications Dose Ordered Sig/Charli Route Start Time Stop Time Status Last Admin Dose Admin Vancomycin HCl 0 ml @ 0 mls/hr UD IV 11/01/24 16:00 Diagnostic Test (Pha) 1 strip ACHS 11/01/24 17:00 11/05/24 06:27 1 STRIP Insulin Human Regular ACHS SC 11/01/24 17:00 11/05/24 06:29 3 UNITS Dextrose 50 ml UD PRN IV 11/01/24 16:00 Docusate Sodium 100 mg BIDPRN PRN PO 11/01/24 16:00 Acetaminophen 650 mg Q6HP PRN PO 11/01/24 16:00 11/03/24 13:10 650 MG Hydromorphone HCl 0.5 mg Q4HP PRN IV 11/01/24 16:00 11/04/24 22:07 0.5 MG Ondansetron HCl 4 mg Q4HP PRN IV 11/01/24 16:00 Piperacillin Sod/ Tazobactam Sod 100 ml @ 25 mls/hr Q6H IV 11/02/24 14:00 11/05/24 01:58 25 MLS/HR Vancomycin HCl 350 ml @ 233.333 mls/hr Q10H IV 11/03/24 16:00 11/04/24 22:08 233.333 MLS/HR Amino Acids 0 ml @ 0 mls/hr PER PHARMACY IV 11/04/24 14:00 UNV Laboratory Results Laboratory Tests 11/05/24 04:54 Chemistry Test 11/05/24 04:54 Albumin 4.1 g/dL (3.2-4.8) Calcium Level 9.7 mg/dL (8.7-10.4) Total Protein 7.1 g/dL (5.7-8.2) LFT Test 11/05/24 04:54 Alanine Aminotransferase (ALT) 32 U/L (7-40) Alkaline Phosphatase 93 U/L (46-116) Aspartate Amino Transferase (AST) 27 U/L (13-40) Total Bilirubin 0.8 mg/dL (0.2-1.0) Microbiology Microbiology Date/Time Source Procedure Growth Status 11/04/24 13:45 Foot Left Gram Stain Pending Resulted 11/04/24 13:45 Foot Left Anaerobic Culture - Preliminary Resulted 11/04/24 13:45 Foot Left Aerobic Culture Pending Resulted 11/01/24 12:39 Blood Blood Culture - Preliminary NO GROWTH AFTER 72 HOURS OF INCUBATION. Resulted Labs and/or images reviewed: Labs reviewed by me, Image(s) reviewed by me Assessment/Plan Assessment/Plan Sepsis secondary to cellulitis of the foot Cellulitis left foot with nonhealing left 5th toe wound: Blood cultures negative, wound cultures pending, continue vancomycin and Zosyn, Status post Left foot I&D to bone () Left foot bone biopsy () by photographic equipment inspector Dr. Boland 11-04-24 CT left foot negative for any fracture or dislocation Uncontrolled diabetes new onset blood glucose 385 A1c 8.8: Insulin sliding scale, diabetic teaching Lactic acidosis DVT left lower extremity ruled out Plan discussed with: Patient Date of Service: Nov 05, 2024 Billing Provider: LEIGH ZAPATA MD Common Visit Codes: [id number] INP/OBS CARE(HIGH) LEIGH ZAPAAT MD Nov 05, 2024 08:51
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
[2024-11-06] VITALS (13 sets, daily range): BP systolic 110–138; BP diastolic 56–86; PULSE 50–95; RESP 12–20; TEMP 97.5–98.6; O2SAT 93–100
[2024-11-06] MEDS: VANCOMYCIN 1.5GM/300ML 300 ML IV SCH (04:05)
[2024-11-06 07:21] LABS: Basophils # (auto) 0.1 10 ^3/uL (0-0.2); Basophils % (auto) 1.5 % (0.0-2.0); Eosinophils # (auto) 0.5 10 ^3/uL (0-0.8); Hematocrit 41.1 % (41.0-53.0); Hemoglobin 14.4 g/dL (13.5-17.5); Lymphocytes # (auto) 1.8 10 ^3/uL (0.4-5.4); Lymphocytes % (auto) 22.4 % (10.0-50.0); Mean Corpuscular Hemoglobin 31.3 pg (28.0-32.0); Mean Corpuscular Hgb Conc. 35.1 g/dL (32.0-36.0); Mean Corpuscular Volume 89.1 fL (80.0-100.0); Monocytes # (auto) 0.7 10 ^3/uL (0-1.3); Monocytes % (auto) 8.3 % (0.0-12.0); Neutrophils # (auto) 5.1 10 ^3/uL (1.6-8.6); Neutrophils % (auto) 61.8 % (37.0-80.0); Platelet Count (auto) 303 10^3/uL (140-450); Red Blood Cells 4.61 10^6/uL (4.5-5.90); Red Cell Distribution Width 12.7 % (11.8-14.3); White Blood Cell 8.2 10^3/uL (4.4-10.8)
[2024-11-06 07:31] LABS: Alanine Aminotransferase 36 U/L (7-40); Alkaline Phosphatase 95 U/L (46-116); Anion Gap 10 (5-15); BUN/Creatinine Ratio 12.7 (10.0-20.0); Blood Urea Nitrogen 13 mg/dL (9-23); Carbon Dioxide 25 mmol/L (20-31); Chloride 101 mmol/L (98-107); Potassium 4.5 mmol/L (3.5-5.1); Total Protein 7.7 g/dL (5.7-8.2)
[2024-11-06 07:32] LABS: Albumin 4.4 g/dL (3.2-4.8); Aspartate Aminotransferase 31 U/L (13-40)
[2024-11-06 07:33] LABS: Bilirubin, Total 0.9 mg/dL (0.2-1.0); Glucose 124 mg/dL (74-106); Sodium 136 mmol/L (136-145)
[2024-11-06] MEDS ORDERED: PROPOFOL 10 MG/ML 20 ML IV ONE ×2 (07:50→09:28)
[2024-11-06] MEDS ORDERED: ONDANSETRON HCL 4 MG/2 ML VIAL ONE (07:50)
[2024-11-06] MEDS ORDERED: DexAMETHasone SOD PHOS 10MG/1ML VIAL INJ ONE (07:50)
[2024-11-06] MEDS ORDERED: KETOROLAC TROMETH 30 MG/ML 1ML VIAL ONE (07:50)
[2024-11-06] MEDS ORDERED: KETAMINE 50mg/ML 1ml syringe ONE (07:50)
[2024-11-06] MEDS ORDERED: LIDOCAINE 1% INJ PF 5ML AMP ONE (07:50)
[2024-11-06] MEDS ORDERED: GLYCOPYRROLATE 0.2 MG/ML 1ML VIAL ONE (07:50)
[2024-11-06] MEDS: BUPIVACAINE HCL 50 ML ONE (07:57)
--- NOTE | 2024-11-06 09:16 | DVHPN2 ---
Reviewed: Care Plan, H&P, Labs, Medications, Previous Orders, Radiology Changes from previous H/P or p: No Changes Objective Vitals Vital Signs Date Time Temp Pulse Resp B/P (MAP) Pulse Ox O2 Delivery O2 Flow Rate FiO2 11/06/24 08:00 Room Air* 0 21 11/06/24 07:48 98.6 63 20 125/77 (93) 94 98.6 Intake/Output Intake and Output 11/06/24 07:00 Intake Total 2700 ml Output Total 2140 ml Balance 560 ml Intake Oral 2200 ml IV Total 500 ml Output Urine Total 2140 ml Medications Current Medications Medications Dose Ordered Sig/Charli Route Start Time Stop Time Status Last Admin Dose Admin Vancomycin HCl 0 ml @ 0 mls/hr UD IV 11/01/24 16:00 Diagnostic Test (Pha) 1 strip ACHS 11/01/24 17:00 11/06/24 06:31 1 STRIP Insulin Human Regular ACHS SC 11/01/24 17:00 11/06/24 06:34 2 UNITS Dextrose 50 ml UD PRN IV 11/01/24 16:00 Docusate Sodium 100 mg BIDPRN PRN PO 11/01/24 16:00 Acetaminophen 650 mg Q6HP PRN PO 11/01/24 16:00 11/03/24 13:10 650 MG Hydromorphone HCl 0.5 mg Q4HP PRN IV 11/01/24 16:00 11/06/24 05:41 0.5 MG Ondansetron HCl 4 mg Q4HP PRN IV 11/01/24 16:00 Piperacillin Sod/ Tazobactam Sod 100 ml @ 25 mls/hr Q6H IV 11/02/24 14:00 11/06/24 02:03 25 MLS/HR Amino Acids 0 ml @ 0 mls/hr PER PHARMACY IV 11/04/24 14:00 UNV Vancomycin HCl 300 ml @ 200 mls/hr Q10H IV 11/06/24 04:00 11/06/24 04:05 200 MLS/HR Laboratory Results Laboratory Tests 11/06/24 05:36 Chemistry Test 11/06/24 05:36 Albumin 4.4 g/dL (3.2-4.8) Calcium Level 10.0 mg/dL (8.7-10.4) Total Protein 7.7 g/dL (5.7-8.2) LFT Test 11/06/24 05:36 Alanine Aminotransferase (ALT) 36 U/L (7-40) Alkaline Phosphatase 95 U/L (46-116) Aspartate Amino Transferase (AST) 31 U/L (13-40) Total Bilirubin 0.9 mg/dL (0.2-1.0) Microbiology Microbiology Date/Time Source Procedure Growth Status 11/04/24 13:45 Foot Left Gram Stain - Final Resulted 11/04/24 13:45 Foot Left Anaerobic Culture - Preliminary Resulted 11/04/24 13:45 Foot Left Aerobic Culture - Preliminary Resulted 11/01/24 12:39 Blood Blood Culture - Preliminary NO GROWTH AFTER 72 HOURS OF INCUBATION. Resulted Labs and/or images reviewed: Labs reviewed by me, Image(s) reviewed by me Assessment/Plan Assessment/Plan Sepsis secondary to cellulitis of the foot Cellulitis left foot with nonhealing left 5th toe wound: Blood cultures negative, wound cultures pending, continue vancomycin and Zosyn, Status post Left foot I&D to bone () Left foot bone biopsy () by superintendent division Dr. Boland 11-04-24 CT left foot negative for any fracture or dislocation Uncontrolled diabetes new onset blood glucose 385 A1c 8.8: Insulin sliding scale, diabetic teaching Lactic acidosis Acute osteomyelitis 5th left metatarsal: Continue antibiotics: Consult for ID Dr.Kevin Duff DVT left lower extremity ruled out Plan discussed with: Patient Date of Service: Nov 06, 2024 Billing Provider: LEIGH ZAPATA MD Common Visit Codes: [id number] INP/OBS CARE(HIGH) LEIGH ZAPATA MD Nov 06, 2024 09:16
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
--- NOTE | 2024-11-06 09:21 | DVHOP2 ---
Operative Report - 2 Report Details Date: 11/06/24 Preop Diagnosis: 1. Left foot osteomyelitis 2. Left foot abscess 3. Left foot cellulitis 4. Left foot diabetic ulcer Postop Diagnosis: Same as preop Surgeon: Aline Salcido MD Anesthesiologist: See anesthesia Anesthesia: Mac Consent: The patient was informed of the risks and benefits of the procedure. These include but are not limited to complications of anesthesia, postoperative infection, incomplete relief of symptoms, recurrence of symptoms, damage to blood vessels, nerves and tendons, deep venous thrombosis, pulmonary embolism and possible need for repeat surgery in the future. Complications: None Estimated Blood Loss: Minimal Fluids: See anesthesia Findings: Consistent with the diagnosis Indications for Surgery: Worsening left foot wound Name of Procedure Performed 1. Left foot I&D to bone (42425) 2. Left foot delayed closure (58462) Procedure Details Procedure Details: PRE-PROCEDURE INFORMATION: In the pre-op holding area, the extremity to be operated on was clearly marked and the patient verified correct laterality of the marking. The patient was transferred to the OR table and placed in a supine position. A timeout was performed in which identification of the correct patient, procedure, location, and materials was done. The left foot and leg were prepped and draped in normal sterile fashion. DESCRIPTION OF PROCEDURE: Attention was directed to the left where area of fluctuance was noted. An incision was made over this area and was deepened through blunt dissection. The incision was deepened to the level of abscess and bone. Care was taken to the dissection to avoid any neurovascular and tendinous structures. The incision was deepened to the bone, and the abscess appeared to be purulent fluid consistent with pus. The cortices of the bone was then removed with rongeur an all necrotic tissue. After the abscess was drained, the area was irrigated with 3 L normal saline using cysto tubing. A delayed closure was then performed using 2-0 nylon and vancomycin powder after was deemed appropriate with no longer concern for infection. POSTOPERATIVE INFORMATION: The patient tolerated the above noted procedure and anesthesia well and was transferred to the PACU with vital signs stable, and vascular status intact with capillary refill intact to all digits. Patient will return to the floor continue IV antibiotics. Patient can be discharged home on 3 weeks of p.o. antibiotics. Patient will follow up with me next week. Patient to keep the dressing clean dry and intact. Patient can weightbear as tolerated in a postoperative shoe Condition Good Disposition Still a Patient ALINE SALCIDO DPM Nov 06, 2024 09:21
[2024-11-06] MEDS: BUPIVACAINE 0.5% INJ 50ML VIAL IJ ONE (09:41)
[2024-11-06] MEDS: VANCOMYCIN HCL 1000 MG VL ONE (09:41)
[2024-11-06] MEDS ORDERED: ePHEDrine SULFATE 50 MG/ML AMP IV PRN (10:00)
[2024-11-06] MEDS ORDERED: HYDROmorphone HCL 2 MG/ML VL/or syr IV PRN (10:00)
[2024-11-06] MEDS ORDERED: fentaNYL CITRATE 100 MCG/2 ML VL IV PRN (10:00)
[2024-11-06] MEDS ORDERED: ONDANSETRON HCL 4 MG/2 ML VIAL IV PRN (10:00)
[2024-11-06] MEDS ORDERED: hydrALAZINE HCL 20 MG/ML VL IV PRN (10:00)
[2024-11-06] MEDS ORDERED: FLUMAZENIL 0.1 MG/ML INJ 10ML MDV IV PRN (10:00)
[2024-11-06] MEDS ORDERED: NALOXONE HCL 0.4 MG/ML VIAL IV PRN (10:00)
[2024-11-06] MEDS ORDERED: PIPERACILLIN-TAZOB 3.375GM 100 ML IV SCH (21:00)
[2024-11-06] MEDS: PIPERACILLIN-TAZOB 3.375GM 100 ML IV SCH (22:25)
[2024-11-07] VITALS (15 sets, daily range): BP systolic 115–150; BP diastolic 69–85; PULSE 66–83; RESP 16–18; TEMP 97.4–98.5; O2SAT 96–100
--- NOTE | 2024-11-07 08:14 | DVHPN2 ---
Reviewed: Care Plan, H&P, Labs, Medications, Previous Orders, Radiology Changes from previous H/P or p: No Changes Objective Vitals Vital Signs Date Time Temp Pulse Resp B/P (MAP) Pulse Ox O2 Delivery O2 Flow Rate FiO2 11/07/24 06:11 100 Room Air 0.0 11/07/24 06:11 40 21 11/07/24 05:00 98.5 82 17 126/79 (95) 98.5 Intake/Output Intake and Output 11/07/24 07:00 Intake Total 1800 ml Output Total 1500 ml Balance 300 ml Intake Oral 900 ml IV Total 900 ml Output Urine Total 1500 ml Medications Current Medications Medications Dose Ordered Sig/Charli Route Start Time Stop Time Status Last Admin Dose Admin Diagnostic Test (Pha) 1 strip ACHS 11/01/24 17:00 11/07/24 06:06 1 STRIP Insulin Human Regular ACHS SC 11/01/24 17:00 11/07/24 06:07 3 UNITS Dextrose 50 ml UD PRN IV 11/01/24 16:00 Docusate Sodium 100 mg BIDPRN PRN PO 11/01/24 16:00 Acetaminophen 650 mg Q6HP PRN PO 11/01/24 16:00 11/03/24 13:10 650 MG Hydromorphone HCl 0.5 mg Q4HP PRN IV 11/01/24 16:00 11/07/24 03:01 0.5 MG Ondansetron HCl 4 mg Q4HP PRN IV 11/01/24 16:00 Amino Acids 0 ml @ 0 mls/hr PER PHARMACY IV 11/04/24 14:00 UNV Linezolid 300 ml @ 150 mls/hr Q12HR IV 11/07/24 10:00 UNV Laboratory Results Laboratory Tests 11/06/24 05:36 11/07/24 05:33 Microbiology Microbiology Date/Time Source Procedure Growth Status 11/04/24 13:45 Foot Left Gram Stain - Final Resulted 11/04/24 13:45 Foot Left Anaerobic Culture - Preliminary Resulted 11/04/24 13:45 Foot Left Aerobic Culture - Preliminary Resulted 11/01/24 12:39 Blood Blood Culture - Final NO GROWTH AFTER 5 DAYS OF INCUBATION. Complete Labs and/or images reviewed: Labs reviewed by me, Image(s) reviewed by me Assessment/Plan Assessment/Plan Sepsis secondary to cellulitis of the foot Cellulitis left foot with nonhealing left 5th toe wound: Blood cultures negative, wound cultures growing E faecalis DC vancomycin and Zosyn start Zyvox 600 mg IV q.12h for six weeks Status post Left foot I&D to bone () Left foot bone biopsy () by special needs bus driver Dr. Boland 11-04-24, with delayed closure. CT left foot negative for any fracture or dislocation Uncontrolled diabetes new onset blood glucose 385 A1c 8.8: Insulin sliding scale, diabetic teaching Lactic acidosis Acute osteomyelitis 5th left metatarsal: Continue antibiotics: Consult for ID Dr.Kevin Duff pending DVT left lower extremity ruled out Plan discussed with: Patient My Orders Orders - LEIGH ZAPATA MD Procedure Category Date Status Time * Infectious [place]- CONS 11/06/24 Transmitted Ria Duff 09:16 Consistent DIET 11/06/24 Transmitted Carb(Ccho)Diabetes Lunch Linezolid 600mg/300ml PHA 11/07/24 Logged (Zyvox) 10:00 Date of Service: Nov 07, 2024 Billing Provider: LEIGH ZAPATA MD Common Visit Codes: [id number] INP/OBS CARE(HIGH) LEIGH ZAPATA MD Nov 07, 2024 08:14
[2024-11-07 08:35] LABS: Basophils # (auto) 0.1 10 ^3/uL (0-0.2); Basophils % (auto) 0.7 % (0.0-2.0); Eosinophils # (auto) 0 10 ^3/uL (0-0.8); Eosinophils % (auto) 0.4 % (0.0-7.0); Hematocrit 39.1 % (41.0-53.0); Hemoglobin 13.7 g/dL (13.5-17.5); Lymphocytes # (auto) 1.5 10 ^3/uL (0.4-5.4); Lymphocytes % (auto) 14.7 % (10.0-50.0); Mean Corpuscular Hemoglobin 30.9 pg (28.0-32.0); Mean Corpuscular Volume 88.3 fL (80.0-100.0); Monocytes # (auto) 0.5 10 ^3/uL (0-1.3); Monocytes % (auto) 5.4 % (0.0-12.0); Neutrophils # (auto) 7.9 10 ^3/uL (1.6-8.6); Neutrophils % (auto) 78.8 % (37.0-80.0); Nucleated Red Blood Cells % 0.2 %; Platelet Count (auto) 305 10^3/uL (140-450); Red Blood Cells 4.43 10^6/uL (4.5-5.90); Red Cell Distribution Width 12.4 % (11.8-14.3)
[2024-11-07] MEDS: LINEZOLID 600MG/300ML 300 ML IV SCH (09:55)
[2024-11-07] MEDS ORDERED: VANCOMYCIN PER PHARMACY 0 MG IV SCH (13:15)
--- NOTE | 2024-11-07 13:17 | DVHINCON2 ---
Date of service: Nov 06, 2024 Allergies: Coded Allergies: NO KNOWN ALLERGIES (Unverified , 11/01/24) Current Medications Current Medications Medications (Trade) Dose Ordered Sig/Charli Route PRN Reason Start Time Stop Time Status Last Admin Piperacillin Sod/ Tazobactam Sod 100 ml @ 25 mls/hr Q6H IV 11/06/24 21:00 11/06/24 20:50 DC Piperacillin Sod/ Tazobactam Sod 100 ml @ 25 mls/hr Q6H IV 11/06/24 22:00 11/07/24 08:05 DC 11/07/24 04:02 Linezolid 300 ml @ 150 mls/hr Q12HR IV 11/07/24 10:00 11/07/24 09:55 Vital Signs Vital Signs Date Time Temp Pulse Resp B/P (MAP) Pulse Ox O2 Delivery O2 Flow Rate FiO2 11/07/24 11:17 71 16 118/76 11/07/24 09:00 97.4 98 97.4 11/07/24 06:11 Room Air 0.0 11/07/24 06:11 40 21 Labs/Diagnostic Data Labs Test 11/07/24 11:41 11/07/24 05:33 11/06/24 05:36 11/05/24 17:21 Range/Units POC Glucose 265 H 70-106 mg/dl White Blood Count 10.0 4.4-10.8 10^3/uL Red Blood Count 4.43 L 4.5-5.90 10^6/uL Hemoglobin 13.7 13.5-17.5 g/dL Hematocrit 39.1 L 41.0-53.0 % Mean Corpuscular Volume 88.3 80.0-100.0 fL Mean Corpuscular Hemoglobin 30.9 28.0-32.0 pg Mean Corpuscular Hemoglobin Concent 35.0 32.0-36.0 g/dL Red Cell Distribution Width 12.4 11.8-14.3 % Platelet Count 305 140-450 10^3/uL Mean Platelet Volume 7.6 6.9-10.8 fL Neutrophils (%) (Auto) 78.8 37.0-80.0 % Lymphocytes (%) (Auto) 14.7 10.0-50.0 % Monocytes (%) (Auto) 5.4 0.0-12.0 % Eosinophils (%) (Auto) 0.4 0.0-7.0 % Basophils (%) (Auto) 0.7 0.0-2.0 % Neutrophils # (Auto) 7.9 1.6-8.6 10 ^3/uL Lymphocytes # (Auto) 1.5 0.4-5.4 10 ^3/uL Monocytes # (Auto) 0.5 0-1.3 10 ^3/uL Eosinophils # (Auto) 0 0-0.8 10 ^3/uL Basophils # (Auto) 0.1 0-0.2 10 ^3/uL Nucleated Red Blood Cells 0.2 % Creatinine 0.82 0.700-1.30 mg/dL Glomerular Filtration Rate Calc 107 >90 mL/min Sodium Level 136 136-145 mmol/L Potassium Level 4.5 3.5-5.1 mmol/L Chloride Level 101 98-107 mmol/L Carbon Dioxide Level 25 20-31 mmol/L Anion Gap 10 5-15 Blood Urea Nitrogen 13 9-23 mg/dL BUN/Creatinine Ratio 12.7 10.0-20.0 Serum Glucose 124 H 74-106 mg/dL Calcium Level 10.0 8.7-10.4 mg/dL Total Bilirubin 0.9 0.2-1.0 mg/dL Aspartate Amino Transferase (AST) 31 13-40 U/L Alanine Aminotransferase (ALT) 36 7-40 U/L Alkaline Phosphatase 95 46-116 U/L Total Protein 7.7 5.7-8.2 g/dL Albumin 4.4 3.2-4.8 g/dL Vancomycin Level Trough 18.1 H 5-10 ug/mL Test 11/04/24 05:25 11/01/24 12:39 11/01/24 10:48 Range/Units Prothrombin Time 12.2 H 9.3-11.8 sec Prothrombin Time INR 1.17 H 0.9-1.15 Activated Partial Thromboplast Time 30.5 24.5-34.5 SEC Lactic Acid Level 1.8 0.4-2.0 mmol/L Erythrocyte Sedimentation Rate 72 H 0-20 mm/hr Hemoglobin A1c 8.8 H <5.7 % A1C C-Reactive Protein High Sensitivity 5.92 H <1.0 mg/dL Microbiology Date/Time Source Procedure Growth Status 11/04/24 13:45 Foot Left Gram Stain - Final Resulted 11/04/24 13:45 Foot Left Anaerobic Culture - Preliminary Resulted 11/04/24 13:45 Foot Left Aerobic Culture - Preliminary Resulted 11/01/24 12:39 Blood Blood Culture - Final NO GROWTH AFTER 5 DAYS OF INCUBATION. Complete Problems(with codes): (1) Cellulitis (2) Sepsis (3) Uncontrolled diabetes mellitus (4) Osteomyelitis of foot (5) Severe sepsis Plan/Recommendation ASSESSMENT AND PLAN: ID Problem List: - Acute left foot osteomyelitis - Acute left foot abscess - Acute left foot cellulitis - Acute left foot diabetic ulcer - Uncontrolled diabetes mellitus - Enterococcus and Group B Streptococcus infection - Burn injury to left foot - Hyperglycemia - History of recent left foot surgery and wound debridement Assessment This is an elderly female with a history of diabetes mellitus (on home insulin) and recent back and right foot surgery, presenting with acute onset burning sensation and redness of the left foot, associated with diffuse swelling and erythema extending through the ankle and midfoot. There was poor response to conservative management, including acetaminophen and ibuprofen at home. The wound was previously blistered over the anterior toes due to boot contact, and subsequently evaluated by a wound care team with appropriate dressing changes and superficial cultures obtained. On admission, notable findings included: - Significant swelling, redness, and blistering of the left foot. - MRI of the left foot revealed diffuse soft tissue edema most pronounced in the lateral aspect, findings most consistent with cellulitis, soft tissue laceration, and bone marrow signal abnormality involving the left fifth metatarsal and proximal phalanx concerning for osteomyelitis. - Deep operative cultures (from surgical debridement and bone biopsy) grew Group B Streptococcus and Enterococcus species (both vancomycin and ampicillin se nsitive). - Clinical course complicated by episodes of hyperglycemia (blood sugars >200 mg/dL), hypoglycemia, and rising creatinine. - Labs: Hemoglobin decreased from 11.2 g/dL to 8.8 g/dL; sodium 128 mmol/L, BUN 12, creatinine uptrending (last 0.94 mg/dL); lactic acid initially elevated (3.1 mmol/L), improved to 1.8 mmol/L after IVF. - No fever or systemic symptoms reported; afebrile on current vitals. - Imaging: CXR with pulmonary venous congestion, no evidence of DVT, and CT ruled out acute fracture/dislocation. She underwent operative debridement with removal of necrotic bone and abscess, bone biopsy, and deep tissue cultures. Plan: - Continue IV vancomycin and piperacillin-tazobactam (Zosyn); adjust based on sensitivities and renal function - Placement of PICC line for long-term antibiotic therapy - Monitor renal function and adjust antibiotic dosing as warranted - Strict blood glucose control; maintain blood sugar <180 mg/dL to optimize wound healing - Wound care with daily dressing changes and outpatient wound management at discharge - Consider further operative debridement if clinically indicated - Outpatient follow-up with infectious disease and primary care in four weeks - Monitor complete blood count, basic metabolic panel, inflammatory markers throughout hospital stay - Continue to monitor for evidence of recurrent infection or abscess formation Assessment and plan discussed with the patient as above. Plan may be updated as further diagnostics, operative, or culture data becomes available. Thank you for the consult. Infectious Disease will continue to follow. Please contact ID for any questions or updates. Isai Duff M.D. [facility] Ph: ? History: The patient's chart and medications were reviewed in detail and the patient was seen and examined. History obtained from: Patient and chart. An elderly woman with diabetes mellitus and recent right foot surgery presents for evaluation of left foot pain, burning sensation, swelling, and redness with blistering over the dorsal aspects of the anterior toes and extending to the midfoot and ankle. There has been no improvement with home therapy. There is no associated numbness, tingling, or fever. She recently traveled to [place] and received a tetanus booster at urgent care. She denies alcohol or IV drug use but has a history of tobacco use. She was evaluated by a wound care provider recently, with cultures obtained at that time. Past surgical evaluation included foot MRI showing cellulitis and findings of osteomyelitis involving the fifth metatarsal and proximal phalanx. Operative debridement, abscess drainage, and deep tissue and bone biopsy were performed. Cultures grew Enterococcus and Group B Streptococcus, both with appropriate sensitivities. Blood sugars have fluctuated with episodes of hyper- and hypoglycemia during the hospitalization, and there is a mild rise in creatinine. Review of Systems: A complete 10-system review of systems was completed and negative except as noted in the HPI or here. - CONSTITUTIONAL: Denies weight loss, fever, or chills. - HEENT: No visual or hearing changes reported. - RESPIRATORY: No shortness of breath or cough. - CARDIOVASCULAR: No chest pain or palpitations. - GASTROINTESTINAL: Denies nausea, vomiting, diarrhea, or abdominal pain. - GENITOURINARY: Not discussed. - MUSCULOSKELETAL: No recent joint pain or significant muscular pain except for left foot. - SKIN: Positive for left foot redness, swelling, blisters as described. No generalized rash or pruritus. - NEUROLOGIC: Denies numbness, tingling, or weakness. - PSYCHIATRIC: Mood not discussed. Past Medical History: - Diabetes mellitus - Recent back and right foot surgery (details not specified) Past Surgical History: - Recent back and right foot surgery - Left foot operative debridement and bone biopsy (hospital course) Home Medications: - Insulin (dose and formulation not provided) - Acetaminophen and ibuprofen used at home for pain (dosing not specified) - No additional home medications described Allergies: Not discussed. Family History: Not discussed. Social History: - Positive for cigarette smoking - Denies alcohol use - Denies intravenous drug use - Recent travel to [place] Objective: Vital Signs on Arrival: Temperature: 97.4F Blood Pressure: 126/79 mmHg Pulse: Not provided Respiratory Rate: Not provided SpO2: Not provided Physical Exam: General: NAD Neck: Supple. No masses. HEENT: PERRL. Normal lids and conjunctiva. Moist mucous membranes. Oropharynx without lesions, exudates, or excessive erythema. Normal appearance of external nose and ears. Heart: Regular rhythm, normal rate. No murmur. No lower extremity edema. Lungs: Normal respiratory effort. Clear to auscultation bilaterally. No wheezes. No crackles. Abdomen: Soft. Non-tender. Non-distended. No masses or abdominal hernia. Msk: No digital cyanosis. Normal strength and tone in all 4 limbs. Skin: Warm and dry, no rashes. Significant swelling, erythema, and blistering of the left foot, extending from anterior toes to midfoot and ankle. Neuro: Alert. No facial droop or slurred speech. Extra-ocular movements intact. Sensation intact to soft touch in all 4 limbs. Psych: Appropriate mood. Full affect. Oriented to person, place, time, and situation. Diagnostic Studies: Laboratory Data: - Hemoglobin: 11.2 g/dL ? 8.8 g/dL during hospital course - Sodium: 128 mmol/L - BUN: 12 mg/dL - Creatinine: 0.94 mg/dL (mildly uptrending) - Lactic Acid: 3.1 mmol/L (improved to 1.8 mmol/L with IVF) - C-reactive protein: 5.92 mg/dL Microbiology: - Superficial wound cultures: Enterococcus (vancomycin and ampicillin sensitive), Group B Streptococcus, negative for Staphylococcus aureus - Deep operative cultures: Group B Streptococcus, Enterococcus Imaging: - Left foot MRI: Diffuse soft tissue edema, lateral foot; marrow edema involving 5th metatarsal/proximal phalanx concerning for osteomyelitis - Lower extremity Doppler: No DVT - CT: No acute fracture or dislocation, diffuse soft tissue edema - Chest X-ray: Pulmonary venous congestion Lines: - Not specified. Recommendation for PICC placement for long-term antibiotics. Isolation Precautions: - Not specified. Isai Duff M.D. [facility] Ph: ? Plan discussed with: Patient ISAI DUFF MD Nov 07, 2024 13:17
[2024-11-07] MEDS: cefTRIAXone 2GM/50ML D5W 50 ML IV SCH (16:46)
[2024-11-07 17:47] LABS: INR 1.18 (0.9-1.15); Prothrombin Time 12.3 sec (9.3-11.8)
[2024-11-07] MEDS: VANCOMYCIN 1.5GM/300ML 300 ML IV SCH (17:58)
[2024-11-07] MEDS: DOCUSATE SOD 100 MG CAP PO PRN (20:55)
--- NOTE | 2024-11-07 22:57 | DVHPN2 ---
Consult Progress Note Date Seen: Nov 07, 2024 Subjective Patient reports: Other (doing better after debridement and states he is feeling less sick and fatigued. There does not appear to be any bone exposure or open wound ) Objective vital signs Vital Sign Date Time Temp Pulse Resp B/P (MAP) Pulse Ox O2 Delivery O2 Flow Rate FiO2 11/07/24 22:09 70 17 122/71 11/07/24 21:00 97.7 98 97.7 11/07/24 09:59 Nasal BiPAP Mask 40 11/07/24 08:00 0 Total Intake and Output 11/06/24 11/06/24 11/07/24 15:00 23:00 07:00 Intake Total 100 ml 1000 ml 700 ml Output Total 1200 ml 300 ml Balance 100 ml -200 ml 400 ml medications Current Medications Medications Dose Ordered Sig/Charli Route Start Time Stop Time Status Last Admin Dose Admin Diagnostic Test (Pha) 1 strip ACHS 11/01/24 17:00 11/07/24 21:00 1 STRIP Insulin Human Regular ACHS SC 11/01/24 17:00 11/07/24 21:03 10 UNITS Dextrose 50 ml UD PRN IV 11/01/24 16:00 Docusate Sodium 100 mg BIDPRN PRN PO 11/01/24 16:00 11/07/24 20:55 100 MG Acetaminophen 650 mg Q6HP PRN PO 11/01/24 16:00 11/03/24 13:10 650 MG Hydromorphone HCl 0.5 mg Q4HP PRN IV 11/01/24 16:00 11/07/24 22:09 0.5 MG Ondansetron HCl 4 mg Q4HP PRN IV 11/01/24 16:00 Amino Acids 0 ml @ 0 mls/hr PER PHARMACY IV 11/04/24 14:00 UNV Vancomycin HCl 0 ml @ 0 mls/hr UD IV 11/07/24 13:15 Ceftriaxone Sodium/Dextrose 50 ml @ 50 mls/hr DAILY IV 11/07/24 14:00 11/07/24 16:46 50 MLS/HR Vancomycin HCl 300 ml @ 200 mls/hr Q12H IV 11/07/24 17:00 11/07/24 17:58 200 MLS/HR Physical Exam: General: NAD Neck: Supple. No masses. HEENT: PERRL. Normal lids and conjunctiva. Moist mucous membranes. Oropharynx without lesions, exudates, or excessive erythema. Normal appearance of external nose and ears. Heart: Regular rhythm, normal rate. No murmur. No lower extremity edema. Lungs: Normal respiratory effort. Clear to auscultation bilaterally. No wheezes. No crackles. Abdomen: Soft. Non-tender. Non-distended. No masses or abdominal hernia. Msk: No digital cyanosis. Normal strength and tone in all 4 limbs. Skin: Warm and dry, no rashes. Significant swelling, erythema, and blistering of the left foot, extending from anterior toes to midfoot and ankle. Neuro: Alert. No facial droop or slurred speech. Extra-ocular movements intact. Sensation intact to soft touch in all 4 limbs. Psych: Appropriate mood. Full affect. Oriented to person, place, time, and situation. laboratory and microbiology Laboratory Tests 11/07/24 05:33 11/06/24 05:36 Test 11/06/24 05:36 Range/Units Serum Glucose 124 H 74-106 mg/dL Problem List/Assessment/Plan Problems(with codes): (1) Cellulitis (2) Sepsis (3) Uncontrolled diabetes mellitus (4) Osteomyelitis of foot (5) Severe sepsis Problem List/Assessment/Plan ASSESSMENT AND PLAN: ID Problem List: - Acute left foot osteomyelitis - Acute left foot abscess - Acute left foot cellulitis - Acute left foot diabetic ulcer - Uncontrolled diabetes mellitus - Enterococcus and Group B Streptococcus infection - Burn injury to left foot - Hyperglycemia - History of recent left foot surgery and wound debridement Assessment This is an elderly female with a history of diabetes mellitus (on home insulin) and recent back and right foot surgery, presenting with acute onset burning sensation and redness of the left foot, associated with diffuse swelling and erythema extending through the ankle and midfoot. There was poor response to conservative management, including acetaminophen and ibuprofen at home. The wound was previously blistered over the anterior toes due to boot contact, and subsequently evaluated by a wound care team with appropriate dressing changes and superficial cultures obtained. On admission, notable findings included: - Significant swelling, redness, and blistering of the left foot. - MRI of the left foot revealed diffuse soft tissue edema most pronounced in the lateral aspect, findings most consistent with cellulitis, soft tissue laceration, and bone marrow signal abnormality involving the left fifth metatarsal and proximal phalanx concerning for osteomyelitis. - Deep operative cultures (from surgical debridement and bone biopsy) grew Group B Streptococcus and Enterococcus species (both vancomycin and ampicillin sensitive). - Clinical course complicated by episodes of hyperglycemia (blood sugars >200 mg/dL), hypoglycemia, and rising creatinine. - Labs: Hemoglobin decreased from 11.2 g/dL to 8.8 g/dL; sodium 128 mmol/L, BUN 12, creatinine uptrending (last 0.94 mg/dL); lactic acid initially elevated (3.1 mmol/L), improved to 1.8 mmol/L after IVF. - No fever or systemic symptoms reported; afebrile on current vitals. - Imaging: CXR with pulmonary venous congestion, no evidence of DVT, and CT ruled out acute fracture/dislocation. She underwent operative debridement with removal of necrotic bone and abscess, bone biopsy, and deep tissue cultures. 11/07: unclear if patient has true osteomyelitis , will follow up on biopsy results to confirm and in the meantime will treat with 6 week coarse of IV antibiotics. Cultures are growing cognitive staph , enterococcus and beta hemolytic group staph Plan: - IV Ceftriaxone and vancomycin for 6 weeks - follow up with infectious diease in 4 weeks to determine if additional antibiotics are needed - continue management of burn wounds with wound care as outpatient - recommend close follow up with primary care upon discharge for diabetes management as this is a new diagnosis for patient and will need close management - follow up with Dr Padilla for post op instructions and any other additional possible debridements - Continue IV vancomycin and piperacillin-tazobactam (Zosyn); adjust based on sensitivities and renal function - Placement of PICC line for long-term antibiotic therapy - Monitor renal function and adjust antibiotic dosing as warranted - Strict blood glucose control; maintain blood sugar <180 mg/dL to optimize wound healing - Wound care with daily dressing changes and outpatient wound management at discharge - Consider further operative debridement if clinically indicated - Outpatient follow-up with infectious disease and primary care in four weeks - Monitor complete blood count, basic metabolic panel, inflammatory markers throughout hospital stay - Continue to monitor for evidence of recurrent infection or abscess formation Plan discussed with: Other Dietary Evaluation Review Comments: 1) CCHO 75gm 2) Ori 1pk BID 3) Refer to Sales Account Specialist on DC 4) Continue current plan of care Expected Outcomes/Goals: blood glucose & left foot wound to improve FU 3-5 days ISAI GIFFORD MD Nov 07, 2024 22:57
[2024-11-08] VITALS (8 sets, daily range): BP systolic 104–124; BP diastolic 56–83; PULSE 52–75; RESP 16–20; TEMP 97.9–98.8; O2SAT 95–100
--- NOTE | 2024-11-08 07:59 | DVHPN2 ---
Reviewed: Care Plan, H&P, Labs, Medications, Previous Orders, Radiology Changes from previous H/P or p: No Changes Objective Vitals Vital Signs Date Time Temp Pulse Resp B/P (MAP) Pulse Ox O2 Delivery O2 Flow Rate FiO2 11/08/24 05:59 99 Room Air 0.0 11/08/24 05:59 40 21 11/08/24 05:00 97.9 52 18 104/57 (73) 97.9 Intake/Output Intake and Output 11/08/24 07:00 Intake Total 1350 ml Output Total 800 ml Balance 550 ml Intake Oral 900 ml IV Total 450 ml Output Urine Total 800 ml # Voids 1 Medications Current Medications Medications Dose Ordered Sig/Charli Route Start Time Stop Time Status Last Admin Dose Admin Diagnostic Test (Pha) 1 strip ACHS 11/01/24 17:00 11/08/24 06:26 1 STRIP Insulin Human Regular ACHS SC 11/01/24 17:00 11/08/24 06:28 2 UNITS Dextrose 50 ml UD PRN IV 11/01/24 16:00 Docusate Sodium 100 mg BIDPRN PRN PO 11/01/24 16:00 11/07/24 20:55 100 MG Acetaminophen 650 mg Q6HP PRN PO 11/01/24 16:00 11/03/24 13:10 650 MG Hydromorphone HCl 0.5 mg Q4HP PRN IV 11/01/24 16:00 11/07/24 22:09 0.5 MG Ondansetron HCl 4 mg Q4HP PRN IV 11/01/24 16:00 Amino Acids 0 ml @ 0 mls/hr PER PHARMACY IV 11/04/24 14:00 UNV Vancomycin HCl 0 ml @ 0 mls/hr UD IV 11/07/24 13:15 Ceftriaxone Sodium/Dextrose 50 ml @ 50 mls/hr DAILY IV 11/07/24 14:00 11/07/24 16:46 50 MLS/HR Vancomycin HCl 300 ml @ 200 mls/hr Q12H IV 11/07/24 17:00 11/08/24 05:02 200 MLS/HR Laboratory Results Laboratory Tests 11/06/24 05:36 11/07/24 05:33 Coagulation Test 11/07/24 17:03 Prothrombin Time 12.3 sec (9.3-11.8) H Prothrombin Time INR 1.18 (0.9-1.15) H Activated Partial Thromboplast Time 27.0 SEC (24.5-34.5) Microbiology Microbiology Date/Time Source Procedure Growth Status 11/04/24 13:45 Foot Left Gram Stain - Final Resulted 11/04/24 13:45 Foot Left Anaerobic Culture - Preliminary Resulted 11/04/24 13:45 Foot Left Aerobic Culture - Preliminary Resulted 11/01/24 12:39 Blood Blood Culture - Final NO GROWTH AFTER 5 DAYS OF INCUBATION. Complete Labs and/or images reviewed: Labs reviewed by me, Image(s) reviewed by me Assessment/Plan Assessment/Plan Sepsis secondary to cellulitis of the foot Cellulitis left foot with nonhealing left 5th toe wound: Blood cultures negative, wound cultures growing E faecalis DC vancomycin and Zosyn start Zyvox 600 mg IV q.12h for six weeks Status post Left foot I&D to bone () Left foot bone biopsy () by concrete finishing machine operator Dr. Boland 11-04-24, with delayed closure. CT left foot negative for any fracture or dislocation Uncontrolled diabetes new onset blood glucose 385 A1c 8.8: Insulin sliding scale, diabetic teaching Lactic acidosis Acute osteomyelitis 5th left metatarsal: Continue antibiotics: ID Dr. Duff recommended Rocephin 1 g IV daily and vancomycin 1 g IV daily for six weeks DVT left lower extremity ruled out Plan discussed with: Patient Date of Service: Nov 08, 2024 Billing Provider: LEIGH ZAPATA MD Common Visit Codes: [id number] INP/OBS CARE(HIGH) LEIGH ZAPATA MD Nov 08, 2024 07:59
[2024-11-08] MEDS ORDERED: HYDR-4902 PO (08:05)
[2024-11-08] MEDS ORDERED: METF-372 PO (08:05)
--- NOTE | 2024-11-08 08:14 | DVHDS2 ---
Discharge Summary Date of Admission Nov 01, 2024 at 16:10 Date of Discharge: Nov 08, 2024 Admitting Diagnosis Left foot infection Wounds: Incision and drainage left foot infection Labs/Diagnostic Data: Laboratory Results Test 11/08/24 06:17 11/07/24 17:03 11/07/24 14:36 11/07/24 05:33 POC Glucose 144 mg/dl (70-106) Prothrombin Time 12.3 sec (9.3-11.8) Prothrombin Time INR 1.18 (0.9-1.15) Activated Partial Thromboplast Time 27.0 SEC (24.5-34.5) Random Vancomycin Level 12.2 ug/mL (5-10) White Blood Count 10.0 10^3/uL (4.4-10.8) Red Blood Count 4.43 10^6/uL (4.5-5.90) Hemoglobin 13.7 g/dL (13.5-17.5) Hematocrit 39.1 % (41.0-53.0) Mean Corpuscular Volume 88.3 fL (80.0-100.0) Mean Corpuscular Hemoglobin 30.9 pg (28.0-32.0) Mean Corpuscular Hemoglobin Concent 35.0 g/dL (32.0-36.0) Red Cell Distribution Width 12.4 % (11.8-14.3) Platelet Count 305 10^3/uL (140-450) Mean Platelet Volume 7.6 fL (6.9-10.8) Neutrophils (%) (Auto) 78.8 % (37.0-80.0) Lymphocytes (%) (Auto) 14.7 % (10.0-50.0) Monocytes (%) (Auto) 5.4 % (0.0-12.0) Eosinophils (%) (Auto) 0.4 % (0.0-7.0) Basophils (%) (Auto) 0.7 % (0.0-2.0) Neutrophils # (Auto) 7.9 10 ^3/uL (1.6-8.6) Lymphocytes # (Auto) 1.5 10 ^3/uL (0.4-5.4) Monocytes # (Auto) 0.5 10 ^3/uL (0-1.3) Eosinophils # (Auto) 0 10 ^3/uL (0-0.8) Basophils # (Auto) 0.1 10 ^3/uL (0-0.2) Nucleated Red Blood Cells 0.2 % Creatinine 0.82 mg/dL (0.700-1.30) Glomerular Filtration Rate Calc 107 mL/min (>90) Test 11/06/24 05:36 11/05/24 17:21 11/01/24 12:39 11/01/24 10:48 Sodium Level 136 mmol/L (136-145) Potassium Level 4.5 mmol/L (3.5-5.1) Chloride Level 101 mmol/L (98-107) Carbon Dioxide Level 25 mmol/L (20-31) Anion Gap 10 (5-15) Blood Urea Nitrogen 13 mg/dL (9-23) BUN/Creatinine Ratio 12.7 (10.0-20.0) Serum Glucose 124 mg/dL (74-106) Calcium Level 10.0 mg/dL (8.7-10.4) Total Bilirubin 0.9 mg/dL (0.2-1.0) Aspartate Amino Transferase (AST) 31 U/L (13-40) Alanine Aminotransferase (ALT) 36 U/L (7-40) Alkaline Phosphatase 95 U/L (46-116) Total Protein 7.7 g/dL (5.7-8.2) Albumin 4.4 g/dL (3.2-4.8) Vancomycin Level Trough 18.1 ug/mL (5-10) Lactic Acid Level 1.8 mmol/L (0.4-2.0) Erythrocyte Sedimentation Rate 72 mm/hr (0-20) Hemoglobin A1c 8.8 % A1C (<5.7) C-Reactive Protein High Sensitivity 5.92 mg/dL (<1.0) Other Laboratory Tests 11/07/24 05:33 11/06/24 05:36 Brief Hx & Hospital Course: 49-year-old male came in for left foot infection new onset diabetes treated with the insulin sliding scale diabetic teaching was done glucose 385 A1c 8.8. The patient has had a MRI of the left foot showed osteomyelitis left 5th metatarsal underwent incision and drainage to the bone with a biopsy by . ID was consulted for the antibiotic choice. Urine cultures grew E faecalis sensitive to Zyvox. Dr. Duff advised to discharge patient home on Rocephin 1 g IV daily for six weeks and vancomycin 1 g IV daily for six weeks for osteomyelitis. Patient being discharged. Prescription for metformin and [place] transmitted to the pharmacy handwritten prescription given for glucometer test strips and lancets. Accounting Machine Servicer arranging home health for IV antibiotics PICC line ordered. He will follow up with the bid writer in one week Consults/Reason for consult Doctor Osteopathic Dr. Boland ID Dr.Kevin Duff Operations or Procedures Left foot incision and drainage to the bone Condition at Discharge: Fair Final Diagnosis/Problems List Sepsis secondary to cellulitis of the foot Cellulitis left foot with nonhealing left 5th toe wound: Blood cultures negative, wound cultures growing E faecalis DC vancomycin and Zosyn start Zyvox 600 mg IV q.12h for six weeks Status post Left foot I&D to bone () Left foot bone biopsy () by bid writer Dr. Boland 11-04-24, with delayed closure. CT left foot negative for any fracture or dislocation Uncontrolled diabetes new onset blood glucose 385 A1c 8.8: Insulin sliding scale, diabetic teaching Lactic acidosis Acute osteomyelitis 5th left metatarsal: Continue antibiotics: ID Dr. Duff recommended Rocephin 1 g IV daily and vancomycin 1 g IV daily for six weeks DVT left lower extremity ruled out Discharge Disposition: Home with Health Services Discharge Instruct/Medications Diet: Consistent carbohydrate Activity: Light activity Follow Up/Referral: Check blood sugar 3 times a day Take medications as prescribed Follow up with the bid writer Dr. Boland in one week Follow up with JOSE G Duff in four weeks Medications: Rocephin 1 g IV daily for six weeks Vancomycin 1 g IV daily for six weeks To be given by home health Metformin 1000 mg p.o. b.i.d. 180 [place] 11/3250 p.o. q.6 hours # 40 Transmitted to the pharmacy Handwritten prescription for diabetes supplies 35 (Time taken for discharge summary 35 minutes) Discharge Statement: "Patient was advised to return to the ER or call 911 if any headaches, dizziness, shortness of breath, chest pain, abdominal pain, bleeding, fevers, or worsening of medical condition. Patient was counseled about treatment plan, medications, possible side effects, patientverbalized understanding. All questions were answered to the best of my ability. This discharge took greater then 30 minutes in planning, reviewing documentation, counseling the patient, and discussing with other team members." ASSESSMENT ASSESSMENT Hospital Course Improved Assessment Sepsis secondary to cellulitis of the foot Cellulitis left foot with nonhealing left 5th toe wound: Blood cultures negative, wound cultures growing E faecalis DC vancomycin and Zosyn start Zyvox 600 mg IV q.12h for six weeks Status post Left foot I&D to bone () Left foot bone biopsy () by bid writer Dr. Boland 11-04-24, with delayed closure. CT left foot negative for any fracture or dislocation Uncontrolled diabetes new onset blood glucose 385 A1c 8.8: Insulin sliding scale, diabetic teaching Lactic acidosis Acute osteomyelitis 5th left metatarsal: Continue antibiotics: ID Dr. Duff recommended Rocephin 1 g IV daily and vancomycin 1 g IV daily for six weeks DVT left lower extremity ruled out Date of Service: Nov 08, 2024 Billing Provider: LEIGH ZAPATA MD Common Visit Codes: [id number] DISCH DAY >30min LEIGH ZAPATA MD Nov 08, 2024 08:14
[2024-11-08] MEDS ORDERED: CEFEPIME 2GM/50ML NS 50 ML IV SCH (10:00)
[2024-11-08] MEDS: LIDOCAINE 1% (LOCAL ANESTH.) PF 5ml SDV ID ONE (13:29)
--- NOTE | 2024-11-08 21:49 | DVHPN2 ---
Consult Progress Note Date Seen: Nov 08, 2024 Subjective Patient reports: Feels better (no diarrhea or rash on vancomycin and ctx, picc line cdi) Objective vital signs Vital Sign Date Time Temp Pulse Resp B/P (MAP) Pulse Ox O2 Delivery O2 Flow Rate FiO2 11/08/24 17:18 98.3 75 19 120/83 (95) 98 98.3 11/08/24 08:00 Room Air* 0 21 Total Intake and Output 11/07/24 11/07/24 11/08/24 15:00 23:00 07:00 Intake Total 400 ml 650 ml 300 ml Output Total 800 ml Balance 400 ml -150 ml 300 ml medications Current Medications Medications Dose Ordered Sig/Charli Route Start Time Stop Time Status Last Admin Dose Admin Amino Acids 0 ml @ 0 mls/hr PER PHARMACY IV 11/04/24 14:00 UNV PHYSICAL EXAM: - GENERAL: Alert and oriented x 3. No acute distress. Well-nourished. ? - EYES: EOMI. Anicteric. ?- HENT: Moist mucous membranes. No scleral icterus. No cervical lymphadenopathy. ?- LUNGS: Clear to auscultation bilaterally. No accessory muscle use.? - CARDIOVASCULAR: Regular rate and rhythm. No murmur. No JVD.? - ABDOMEN: Soft, non-tender and non-distended. No palpable masses.? - EXTREMITIES: No edema. Non-tender.?SKIN: No rashes or lesions. Warm. ? - NEUROLOGIC: No focal neurological deficits. CN II-XII grossly intact, but not individually tested.? - PSYCHIATRIC: Cooperative. Appropriate mood and affect. laboratory and microbiology Laboratory Tests 11/07/24 05:33 11/06/24 05:36 Test 11/06/24 05:36 Range/Units Serum Glucose 124 H 74-106 mg/dL Problem List/Assessment/Plan Problem List/Assessment/Plan ASSESSMENT AND PLAN: ID Problem List: - Acute left foot osteomyelitis - Acute left foot abscess - Acute left foot cellulitis - Acute left foot diabetic ulcer - Uncontrolled diabetes mellitus - Enterococcus and Group B Streptococcus infection - Burn injury to left foot - Hyperglycemia - History of recent left foot surgery and wound debridement Assessment This is an elderly female with a history of diabetes mellitus (on home insulin) and recent back and right foot surgery, presenting with acute onset burning sensation and redness of the left foot, associated with diffuse swelling and erythema extending through the ankle and midfoot. There was poor response to conservative management, including acetaminophen and ibuprofen at home. The wound was previously blistered over the anterior toes due to boot contact, and subsequently evaluated by a wound care team with appropriate dressing changes and superficial cultures obtained. On admission, notable findings included: - Significant swelling, redness, and blistering of the left foot. - MRI of the left foot revealed diffuse soft tissue edema most pronounced in the lateral aspect, findings most consistent with cellulitis, soft tissue laceration, and bone marrow signal abnormality involving the left fifth metatarsal and proximal phalanx concerning for osteomyelitis. - Deep operative cultures (from surgical debridement and bone biopsy) grew Group B Streptococcus and Enterococcus species (both vancomycin and ampicillin sensitive). - Clinical course complicated by episodes of hyperglycemia (blood sugars >200 mg/dL), hypoglycemia, and rising creatinine. - Labs: Hemoglobin decreased from 11.2 g/dL to 8.8 g/dL; sodium 128 mmol/L, BUN 12, creatinine uptrending (last 0.94 mg/dL); lactic acid initially elevated (3.1 mmol/L), improved to 1.8 mmol/L after IVF. - No fever or systemic symptoms reported; afebrile on current vitals. - Imaging: CXR with pulmonary venous congestion, no evidence of DVT, and CT ruled out acute fracture/dislocation. She underwent operative debridement with removal of necrotic bone and abscess, bone biopsy, and deep tissue cultures. 11/07: unclear if patient has true osteomyelitis , will follow up on biopsy results to confirm and in the meantime will treat with 6 week coarse of IV antibiotics. Cultures are growing cognitive staph , enterococcus and beta hemolytic group staph Plan: - IV Ceftriaxone and vancomycin for 6 weeks - follow up with infectious diease in 4 weeks to determine if additional antibiotics are needed - continue management of burn wounds with wound care as outpatient - recommend close follow up with primary care upon discharge for diabetes management as this is a new diagnosis for patient and will need close management - follow up with Dr Padilla for post op instructions and any other additional possible debridements - Continue IV vancomycin and piperacillin-tazobactam (Zosyn); adjust based on sensitivities and renal function - Placement of PICC line for long-term antibiotic therapy - Monitor renal function and adjust antibiotic dosing as warranted - Strict blood glucose control; maintain blood sugar <180 mg/dL to optimize wound healing - Wound care with daily dressing changes and outpatient wound management at discharge - Consider further operative debridement if clinically indicated - Outpatient follow-up with infectious disease and primary care in four weeks - Monitor complete blood count, basic metabolic panel, inflammatory markers throughout hospital stay - Continue to monitor for evidence of recurrent infection or abscess formation Plan discussed with: Patient Dietary Evaluation Review Comments: 1) CCHO 75gm 2) Ori 1pk BID 3) Refer to Pallet Stone Positioner on DC 4) Continue current plan of care Expected Outcomes/Goals: blood glucose & left foot wound to improve FU 3-5 days ISAI GIFFORD MD Nov 08, 2024 21:49
[2024-11-08] MEDS ORDERED: SODIUM CHLOR 0.9% PF (SALINE LOCK) 10ML VIAL/SYR IV SCH (22:00)
== END 2024-11-08 17:43 | disposition home health service (06) | DRG 854 ==
LOC: ER 10:27 → OVERFLOW 16:10 → CENTRAL 21:30
PROVIDERS: ADMIT Family Medicine; ATTEND Family Medicine
PROC: 5A09357 Assistance with Respiratory Ventilation, Less than 24 Consecutive Hours, Continuous Positive Airway Pressure (ICD-10-PCS; 2024-11-01)
PROC: 5A09357 Assistance with Respiratory Ventilation, Less than 24 Consecutive Hours, Continuous Positive Airway Pressure (ICD-10-PCS; 2024-11-02)
PROC: 5A09357 Assistance with Respiratory Ventilation, Less than 24 Consecutive Hours, Continuous Positive Airway Pressure (ICD-10-PCS; 2024-11-03)
PROC: 0QBP0ZX Excision of Left Metatarsal, Open Approach, Diagnostic (ICD-10-PCS; 2024-11-04)
PROC: 0Y9N0ZZ Drainage of Left Foot, Open Approach (ICD-10-PCS; 2024-11-04)
PROC: 5A09357 Assistance with Respiratory Ventilation, Less than 24 Consecutive Hours, Continuous Positive Airway Pressure (ICD-10-PCS; 2024-11-04)
PROC: 0QBR0ZX Excision of Left Toe Phalanx, Open Approach, Diagnostic (ICD-10-PCS; principal; 2024-11-04 13:33)
PROC: 5A09357 Assistance with Respiratory Ventilation, Less than 24 Consecutive Hours, Continuous Positive Airway Pressure (ICD-10-PCS; 2024-11-05)
PROC: 0Y9N0ZZ Drainage of Left Foot, Open Approach (ICD-10-PCS; 2024-11-06)
PROC: 5A09357 Assistance with Respiratory Ventilation, Less than 24 Consecutive Hours, Continuous Positive Airway Pressure (ICD-10-PCS; 2024-11-06)
PROC: 5A09357 Assistance with Respiratory Ventilation, Less than 24 Consecutive Hours, Continuous Positive Airway Pressure (ICD-10-PCS; 2024-11-07)
PROC: 02HV33Z Insertion of Infusion Device into Superior Vena Cava, Percutaneous Approach (ICD-10-PCS; 2024-11-08)
PROC: B548ZZA Ultrasonography of Superior Vena Cava, Guidance (ICD-10-PCS; 2024-11-08)
DX: A41.9 Sepsis, unspecified organism (principal); E87.20 Acidosis, unspecified; L03.116 Cellulitis of left lower limb; M86.172 Other acute osteomyelitis, left ankle and foot; L02.612 Cutaneous abscess of left foot; E11.621 Type 2 diabetes mellitus with foot ulcer; E66.9 Obesity, unspecified; F17.210 Nicotine dependence, cigarettes, uncomplicated; L97.529 Non-pressure chronic ulcer of other part of left foot with unspecified severity; E11.69 Type 2 diabetes mellitus with other specified complication; S90.822A Blister (nonthermal), left foot, initial encounter; E11.649 Type 2 diabetes mellitus with hypoglycemia without coma; Z68.39 Body mass index [BMI] 39.0-39.9, adult; Z79.899 Other long term (current) drug therapy; Z79.4 Long term (current) use of insulin; X58.XXXA Exposure to other specified factors, initial encounter; Y93.89 Activity, other specified; Y92.89 Other specified places as the place of occurrence of the external cause; Y99.8 Other external cause status
CPT/HCPCS: 36415; 36569; 71045; 73700; 73718; 76937; 80048; 80053; 80202; 82565; 82962; 83036; 83605; 85025; 85610; 85652; 85730; 86141; 86850; 86900; 86901; 87040; 87070; 87075; 87077; 87186; 87205; 93971; 94660; 96365; 96375; 99291; G0378; J1100; J1815; J1885; J2405; J2543; J2704; J3490